=== PATIENT | female | born 1935 | race Caucasian/White ===

== ENCOUNTER 2016-05-29 11:50 | Inpatient (IN) | payer MEDICARE, OTHER ==
[~2016-05-29] VITALS: Ht 152.4 cm; Wt 82.6 kg
[2016-05-29] MEDS ORDERED: NITROGLYCERIN PACKET 1 GM PACKET ONE (12:23)
[2016-05-29] MEDS ORDERED: ASPIRIN 325 MG TABLET ONE (12:23)
[2016-05-29] MEDS ORDERED: NITROGLYCERIN PACKET 1 GM PACKET TD ONE (12:30)
[2016-05-29] MEDS ORDERED: ASPIRIN 325 MG TABLET PO ONE (12:30)
[2016-05-29 12:33] LABS: BASOPHILS # (AUTO) 0.1 /CMM (0.0-0.2); BASOPHILS % (AUTO) 0.7 % (0.0-2.0); DIFF TOTAL % 100 %; EOSINOPHILS % (AUTO) 0.2 % (0.0-6.0); HEMATOCRIT 30 % (33-45); LYMPHOCYTES # (AUTO) 0.9 /CMM (0.8-4.8); LYMPHOCYTES % (AUTO) 8.3 % (20.0-44.0); MEAN CORPUSCULAR HEMOGLOBIN 29 PG (26.0-33.0); MEAN CORPUSCULAR HGB CONC 33 g/dl (31.0-36.0); MEAN CORPUSCULAR VOLUME 86 fL (82-100); MONOCYTES # (AUTO) 0.5 /CMM (0.1-1.30); MONOCYTES % (AUTO) 4.6 % (2.0-12.0); NEUTROPHILS # (AUTO) 9.3 /CMM (1.8-8.9); NEUTROPHILS % (AUTO) 86.2 % (43.0-81.0); PLATELET COUNT (AUTO) 234 /CMM (150-450); RED BLOOD CELL COUNT(AUTO) 3.49 MIL/uL (4.0-5.2); WHITE BLOOD COUNT (AUTO) 10.8 K/uL (4.3-11.0)
[2016-05-29] MEDS ORDERED: FUROSEMIDE 40 MG/4 ML VIAL ONE (12:36)
[2016-05-29 12:42] LABS: ANION GAP 16 (5-14); CARBON DIOXIDE 24 mmol/L (21-32); CHLORIDE 95 mmol/L (98-107); CREATININE 1.2 mg/dL (0.6-1.3); GLUCOSE 131 mg/dL (74-106); POTASSIUM 4.3 mmol/L (3.5-5.1); SODIUM SERUM 130 mmol/L (136-145); UREA NITROGEN, BLOOD 21 mg/dL (7-18)
[2016-05-29 12:47] LABS: INR 1.17 (0.87-1.13); PROTHROMBIN TIME 12.7 SECS (9.5-12.7)
[2016-05-29 12:49] LABS: ALANINE AMINOTRANSFERASE 18 U/L (12-78); ALBUMIN 3.7 g/dL (3.4-5.0); ASPARTATE AMINOTRANSFERASE 19 U/L (15-37); BILIRUBIN,DIRECT 0.1 mg/dL (0.0-0.2); BILIRUBIN,TOTAL 0.4 mg/dL (0.2-1.0); INDIRECT BILIRUBIN 0.3 mg/dL (0.0-1.1); TOTAL PROTEIN, SERUM 7.4 g/dL (6.4-8.2); TROPONIN I < 0.017 ng/mL (0.00-0.056)
[2016-05-29] MEDS ORDERED: FUROSEMIDE 40 MG/4 ML VIAL IV ONE (13:00)
[2016-05-29] MEDS ORDERED: ASPI325T2 PO (14:16)
[2016-05-29] MEDS ORDERED: LOSA25TA13 PO (14:16)
[2016-05-29] MEDS ORDERED: FURO20TA4 PO (14:16)
[2016-05-29] MEDS ORDERED: SPIR25TA4 PO (14:16)
[2016-05-29 16:00] VITALS: BP 111/62
[2016-05-29] MEDS ORDERED: BUMETANIDE INJ 0.25 MG/ML VIAL IV ONE (17:00)
[2016-05-29] MEDS ORDERED: ENOXAPARIN SODIUM 40 MG/0.4 ML DISP.SYRIN SQ SCH (17:00)
[2016-05-29] MEDS ORDERED: ONDANSETRON HCL/PF 4 MG/2 ML VIAL IVP PRN (17:00)
[2016-05-29] MEDS ORDERED: IV NS 0.9% 250 ML IV ONE (17:23)
[2016-05-29] MEDS ORDERED: SECONDARY IV SET 1 EA INFUS.SET MC ONE (17:23)
[2016-05-29] MEDS ORDERED: IV SET PRIMARY PUMP SET 1 EA INFUS.SET MC ONE ×2 (17:23→17:44)
[2016-05-29] MEDS: CEFTRIAXONE 1 G in IV D5W 50 ML IV SCH (17:34)
[2016-05-29] MEDS: AZITHROMYCIN 500 MG in IV D5W 250 ML IV SCH (17:34)
[2016-05-29 20:00] VITALS: BP 98/64
[2016-05-29] MEDS: ENOXAPARIN SODIUM 30 MG/0.3 ML DISP.SYRIN SQ SCH (20:37)
[2016-05-29] MEDS: ACETAMINOPHEN 325 MG TABLET PO PRN (22:22)
[2016-05-30] VITALS (7 sets, daily range): BP systolic 102–110; BP diastolic 46–65
[2016-05-30] MEDS ORDERED: HYDROCODONE/APAP 5/325MG 1 EACH TABLET PO PRN
[2016-05-30] MEDS ORDERED: GUAIFENESIN/D-METHORPHAN HB 5 ML UDC ONE (00:26)
[2016-05-30] MEDS: GUAIFENESIN/D-METHORPHAN HB 5 ML UDC PO PRN ×4 (00:32→21:23)
[2016-05-30 07:35] LABS: BASOPHILS % (AUTO) 0.3 % (0.0-2.0); DIFF TOTAL % 100 %; HEMATOCRIT 28 % (33-45); HEMOGLOBIN 9.6 g/dL (11.5-14.8); LYMPHOCYTES # (AUTO) 1.2 /CMM (0.8-4.8); LYMPHOCYTES % (AUTO) 12.1 % (20.0-44.0); MEAN CORPUSCULAR HEMOGLOBIN 29 PG (26.0-33.0); MEAN CORPUSCULAR HGB CONC 34 g/dl (31.0-36.0); MEAN CORPUSCULAR VOLUME 86 fL (82-100); MONOCYTES # (AUTO) 0.7 /CMM (0.1-1.30); MONOCYTES % (AUTO) 6.8 % (2.0-12.0); NEUTROPHILS # (AUTO) 7.9 /CMM (1.8-8.9); NEUTROPHILS % (AUTO) 80.8 % (43.0-81.0); PLATELET COUNT (AUTO) 227 /CMM (150-450); RED BLOOD CELL COUNT(AUTO) 3.28 MIL/uL (4.0-5.2); WHITE BLOOD COUNT (AUTO) 9.8 K/uL (4.3-11.0)
[2016-05-30 07:51] LABS: THYROID STIMULATING HORMONE 4.722 uIU/mL (0.358-3.74)
[2016-05-30 07:52] LABS: ALBUMIN 3.4 g/dL (3.4-5.0); BILIRUBIN,TOTAL 0.5 mg/dL (0.2-1.0); CALCIUM, SERUM 8.7 mg/dL (8.5-10.1); CREATININE 1.3 mg/dL (0.6-1.3); PHOSPHORUS 3.3 mg/dL (2.5-4.9); POTASSIUM 4.2 mmol/L (3.5-5.1)
[2016-05-30] MEDS: ASPIRIN 325 MG TABLET PO SCH (09:43)
[2016-05-30] MEDS: LOSARTAN POTASSIUM 25 MG TABLET PO SCH (09:46)
[2016-05-30] MEDS: SPIRONOLACTONE 25 MG TABLET PO SCH (09:46)
[2016-05-30] MEDS: FUROSEMIDE 20 MG TABLET PO SCH (09:46)
[2016-05-30] MEDS: BUMETANIDE INJ 0.25 MG/ML VIAL IV SCH (09:50)
[2016-05-30] MEDS: CEFTRIAXONE 1 G in IV D5W 50 ML IV SCH (17:32)
[2016-05-30] MEDS: AZITHROMYCIN 500 MG in IV D5W 250 ML IV SCH (18:08)
[2016-05-30] MEDS: ACETAMINOPHEN 325 MG TABLET PO PRN (21:23)
[2016-05-30] MEDS: CARVEDILOL 3.125 MG TABLET PO SCH (21:23)
[2016-05-30] MEDS: ENOXAPARIN SODIUM 30 MG/0.3 ML DISP.SYRIN SQ SCH (21:24)
[2016-05-30] MEDS ORDERED: ATORVASTATIN 40 MG TABLET PO SCH (22:00)
[2016-05-31 04:00] VITALS: BP 98/53
[2016-05-31 07:00] VITALS: BP 105/54
[2016-05-31 08:00] VITALS: BP 102/53
[2016-05-31] MEDS: FUROSEMIDE 20 MG TABLET PO SCH (09:00)
[2016-05-31 09:29] LABS: BASOPHILS # (AUTO) 0.1 /CMM (0.0-0.2); BASOPHILS % (AUTO) 0.7 % (0.0-2.0); DIFF TOTAL % 100 %; EOSINOPHILS # (AUTO) 0.2 /CMM (0.0-0.7); EOSINOPHILS % (AUTO) 2.2 % (0.0-6.0); HEMATOCRIT 28 % (33-45); HEMOGLOBIN 9.4 g/dL (11.5-14.8); LYMPHOCYTES # (AUTO) 1.5 /CMM (0.8-4.8); LYMPHOCYTES % (AUTO) 16.8 % (20.0-44.0); MEAN CORPUSCULAR HEMOGLOBIN 29 PG (26.0-33.0); MEAN CORPUSCULAR HGB CONC 34 g/dl (31.0-36.0); MEAN CORPUSCULAR VOLUME 86 fL (82-100); MONOCYTES # (AUTO) 0.6 /CMM (0.1-1.30); MONOCYTES % (AUTO) 6.7 % (2.0-12.0); NEUTROPHILS # (AUTO) 6.5 /CMM (1.8-8.9); NEUTROPHILS % (AUTO) 73.6 % (43.0-81.0); PLATELET COUNT (AUTO) 238 /CMM (150-450); RED BLOOD CELL COUNT(AUTO) 3.25 MIL/uL (4.0-5.2); WHITE BLOOD COUNT (AUTO) 8.8 K/uL (4.3-11.0)
[2016-05-31] MEDS: ASPIRIN 325 MG TABLET PO SCH (09:48)
[2016-05-31] MEDS: SPIRONOLACTONE 25 MG TABLET PO SCH (09:48)
[2016-05-31] MEDS: CARVEDILOL 3.125 MG TABLET PO SCH (09:49)
[2016-05-31] MEDS: BUMETANIDE INJ 0.25 MG/ML VIAL IV SCH (09:52)
[2016-05-31 09:53] VITALS: BP 102/53
[2016-05-31] MEDS: LOSARTAN POTASSIUM 25 MG TABLET PO SCH (09:53)
[2016-05-31 10:04] LABS: CALCIUM, SERUM 8.8 mg/dL (8.5-10.1); CREATININE 1.4 mg/dL (0.6-1.3); PHOSPHORUS 3.6 mg/dL (2.5-4.9); POTASSIUM 3.9 mmol/L (3.5-5.1)
[2016-05-31] MEDS ORDERED: BUME1TAB4 PO (13:33)
[2016-05-31] MEDS ORDERED: CARV3.122 PO (13:33)
[2016-05-31] MEDS ORDERED: PNEUMOCOCCAL 23-VAL P-SAC VAC 0.5 ML VIAL SQ ONE (14:00)
[2016-05-31] MEDS ORDERED: CARVEDILOL 3.125 MG TABLET PO SCH (21:00)
== END 2016-05-31 14:45 | disposition home or self-care (01) | DRG 280 ==
LOC: ER 11:52 → TELE 14:58 → MED 05-31 11:49
PROVIDERS: ADMIT Nurse Practitioner Acute Care; ATTEND Nurse Practitioner Acute Care
DX: I21.4 Non-ST elevation (NSTEMI) myocardial infarction (principal); I50.23 Acute on chronic systolic (congestive) heart failure; J15.9 Unspecified bacterial pneumonia; E87.1 Hypo-osmolality and hyponatremia; I11.0 Hypertensive heart disease with heart failure; D63.8 Anemia in other chronic diseases classified elsewhere; I25.10 Atherosclerotic heart disease of native coronary artery without angina pectoris; I25.2 Old myocardial infarction; Z98.61 Coronary angioplasty status; Z87.01 Personal history of pneumonia (recurrent); I48.91 Unspecified atrial fibrillation; I25.5 Ischemic cardiomyopathy
CPT/HCPCS: 36415; 71010-TC; 80048-TC; 80053-TC; 80061-TC; 80076-TC; 83540-TC; 83735-TC; 84100-TC; 84443-TC; 84484-TC; 85025-TC; 85730-TC; 87081-TC; 90732; 93307-TC; 94799-TC; A4606; J0456; J0696; J1650; J1940; J3490; J7050; J7060; Z7610

== ENCOUNTER 2016-10-31 12:44 | Outpatient (CLI) | payer MEDICARE, OTHER ==
[~2016-10-31 12:44] MED LIST: ASPI325T2 PO; BUME1TAB4 PO; CARV3.122 PO; LOSA25TA13 PO; SPIR25TA4 PO
[2016-10-31 13:26] LABS: BASOPHILS # (AUTO) 0.1 /CMM (0.0-0.2); BASOPHILS % (AUTO) 0.6 % (0.0-2.0); EOSINOPHILS # (AUTO) 0.4 /CMM (0.0-0.7); EOSINOPHILS % (AUTO) 4.3 % (0.0-6.0); HEMATOCRIT 29 % (33-45); HEMOGLOBIN 9.8 g/dL (11.5-14.8); LYMPHOCYTES # (AUTO) 1.3 /CMM (0.8-4.8); LYMPHOCYTES % (AUTO) 15.3 % (20.0-44.0); MEAN CORPUSCULAR HEMOGLOBIN 30 PG (26.0-33.0); MEAN CORPUSCULAR HGB CONC 34 g/dl (31.0-36.0); MEAN CORPUSCULAR VOLUME 87 fL (82-100); MONOCYTES # (AUTO) 0.7 /CMM (0.1-1.30); MONOCYTES % (AUTO) 7.6 % (2.0-12.0); NEUTROPHILS # (AUTO) 6.2 /CMM (1.8-8.9); NEUTROPHILS % (AUTO) 72.2 % (43.0-81.0); PLATELET COUNT (AUTO) 228 /CMM (150-450); RDW COEFFICIENT OF VARIATION 14.5 (11.5-15.0); RED BLOOD CELL COUNT(AUTO) 3.29 MIL/uL (4.0-5.2); WHITE BLOOD COUNT (AUTO) 8.6 K/uL (4.3-11.0)
[2016-10-31 13:39] LABS: APPEARANCE,URINE CLEAR (CLEAR); BILIRUBIN,URINE NEGATIVE (NEGATIVE); BLOOD, URINE NEGATIVE Ery/uL (NEGATIVE); COLOR,URINE YELLOW (YELLOW); KETONES,URINE NEGATIVE (NEGATIVE); LEUKOCYTE ESTERASE ,URINE NEGATIVE (NEGATIVE); NITRITE, URINE NEGATIVE (NEGATIVE); PH,URINE 5.5 (5.0-8.0); PROTEIN,URINE NEGATIVE (NEGATIVE); UGLUCOSE NEGATIVE (NEGATIVE); UROBILINOGEN,URINE 0.2 EU/dL (0.2)
[2016-10-31 13:50] LABS: INR 1.17 (0.87-1.13); PROTHROMBIN TIME 12.7 SECS (9.5-12.7)
[2016-10-31 14:00] LABS: ALANINE AMINOTRANSFERASE 19 U/L (12-78); ALBUMIN 3.6 g/dL (3.4-5.0); ALKALINE PHOSPHATASE 73 U/L (46-116); ASPARTATE AMINOTRANSFERASE 15 U/L (15-37); BILIRUBIN,TOTAL 0.3 mg/dL (0.2-1.0); CALCIUM, SERUM 8.7 mg/dL (8.5-10.1); CARBON DIOXIDE 23 mmol/L (21-32); CHLORIDE 101 mmol/L (98-107); CREATININE 2.1 mg/dL (0.6-1.3); GLUCOSE 126 mg/dL (74-106); POTASSIUM 5.4 mmol/L (3.5-5.1); SODIUM SERUM 134 mmol/L (136-145); TOTAL PROTEIN, SERUM 6.9 g/dL (6.4-8.2); UREA NITROGEN, BLOOD 44 mg/dL (7-18)
[2016-10-31 14:08] LABS: CHOLESTEROL 126 mg/dL (<200); HDL CHOLESTEROL 37 mg/dL (40-60); TRIGLYCERIDES 110 mg/dL (30-150)
[2016-10-31 14:23] LABS: LDL 70 mg/dL (0-99)
== END 2016-10-31 23:59 | disposition home or self-care (01) ==
LOC: LAB 12:44
PROVIDERS: ATTEND Internal Medicine Interventional Cardiology
DX: Z01.818 Encounter for other preprocedural examination (principal); I25.10 Atherosclerotic heart disease of native coronary artery without angina pectoris
CPT/HCPCS: 36415; 80053-TC; 80061-TC; 81000-TC; 84439-TC; 84443-TC; 85025-TC; 85730-TC

== ENCOUNTER 2016-12-12 12:14 | Outpatient (CLI) | payer MEDICARE, OTHER ==
[2016-12-12 12:59] LABS: BASOPHILS % (AUTO) 0.6 % (0.0-2.0); EOSINOPHILS # (AUTO) 0.1 /CMM (0.0-0.7); EOSINOPHILS % (AUTO) 1.1 % (0.0-6.0); HEMATOCRIT 30 % (33-45); LYMPHOCYTES # (AUTO) 1.3 /CMM (0.8-4.8); LYMPHOCYTES % (AUTO) 17.2 % (20.0-44.0); MEAN CORPUSCULAR HEMOGLOBIN 29 PG (26.0-33.0); MEAN CORPUSCULAR HGB CONC 34 g/dl (31.0-36.0); MEAN CORPUSCULAR VOLUME 86 fL (82-100); MONOCYTES # (AUTO) 0.7 /CMM (0.1-1.30); MONOCYTES % (AUTO) 9.2 % (2.0-12.0); NEUTROPHILS # (AUTO) 5.6 /CMM (1.8-8.9); NEUTROPHILS % (AUTO) 71.9 % (43.0-81.0); PLATELET COUNT (AUTO) 243 /CMM (150-450); RDW COEFFICIENT OF VARIATION 14.9 (11.5-15.0); RED BLOOD CELL COUNT(AUTO) 3.46 MIL/uL (4.0-5.2); WHITE BLOOD COUNT (AUTO) 7.7 K/uL (4.3-11.0)
[2016-12-12 13:10] LABS: APPEARANCE,URINE CLEAR (CLEAR); BILIRUBIN,URINE NEGATIVE (NEGATIVE); BLOOD, URINE NEGATIVE Ery/uL (NEGATIVE); COLOR,URINE YELLOW (YELLOW); KETONES,URINE NEGATIVE (NEGATIVE); LEUKOCYTE ESTERASE ,URINE NEGATIVE (NEGATIVE); NITRITE, URINE NEGATIVE (NEGATIVE); PH,URINE 5.5 (5.0-8.0); PROTEIN,URINE NEGATIVE (NEGATIVE); UGLUCOSE NEGATIVE (NEGATIVE); UROBILINOGEN,URINE 0.2 EU/dL (0.2)
[2016-12-12 13:14] LABS: ALANINE AMINOTRANSFERASE 20 U/L (12-78); ALBUMIN 3.6 g/dL (3.4-5.0); ALKALINE PHOSPHATASE 73 U/L (46-116); ASPARTATE AMINOTRANSFERASE 18 U/L (15-37); BILIRUBIN,TOTAL 0.3 mg/dL (0.2-1.0); CALCIUM, SERUM 9.1 mg/dL (8.5-10.1); CARBON DIOXIDE 24 mmol/L (21-32); CHLORIDE 94 mmol/L (98-107); CREATININE 2.1 mg/dL (0.6-1.3); GLUCOSE 100 mg/dL (74-106); POTASSIUM 4.9 mmol/L (3.5-5.1); SODIUM SERUM 126 mmol/L (136-145); TOTAL PROTEIN, SERUM 6.9 g/dL (6.4-8.2); UREA NITROGEN, BLOOD 48 mg/dL (7-18)
[2016-12-12 13:19] LABS: INR 1.15 (0.87-1.13); PROTHROMBIN TIME 12.4 SECS (9.5-12.7)
== END 2016-12-12 23:59 | disposition home or self-care (01) ==
LOC: LAB 12:14
PROVIDERS: ATTEND Internal Medicine Interventional Cardiology
DX: I25.10 Atherosclerotic heart disease of native coronary artery without angina pectoris (principal)
CPT/HCPCS: 36415; 80053-TC; 81000-TC; 85025-TC; 85610-TC; 85730-TC

== ENCOUNTER 2016-12-14 08:48 | Outpatient (CLI) | payer MEDICARE, OTHER ==
[2016-12-14 09:35] LABS: CARBON DIOXIDE 25 mmol/L (21-32); CHLORIDE 91 mmol/L (98-107); CREATININE 1.5 mg/dL (0.6-1.3); GLUCOSE 102 mg/dL (74-106); POTASSIUM 4.7 mmol/L (3.5-5.1); SODIUM SERUM 122 mmol/L (136-145); UREA NITROGEN, BLOOD 38 mg/dL (7-18)
[2016-12-14] MEDS ORDERED: IV NS 0.9% 250 ML IV ONE (10:08)
[2016-12-14] MEDS ORDERED: IOHEXOL-350 100 ML VIAL IV ONE (10:08)
[2016-12-14] MEDS ORDERED: METOPROLOL TARTRATE INJ 5 MG/5 ML AMPUL ONE ×3 (10:54→11:26)
[2016-12-14] MEDS ORDERED: IV NS 0.9% 500 ML BAG IV ONE (11:00)
[2016-12-14] MEDS ORDERED: METOPROLOL TARTRATE INJ 5 MG/5 ML AMPUL IVP PRN (11:00)
== END 2016-12-14 23:59 | disposition home or self-care (01) ==
LOC: LAB 08:48
PROVIDERS: ATTEND Internal Medicine Interventional Cardiology
DX: I25.10 Atherosclerotic heart disease of native coronary artery without angina pectoris (principal); J98.11 Atelectasis; Z95.5 Presence of coronary angioplasty implant and graft
CPT/HCPCS: 36415; 75574; 80048; 93005; J3490 ×3; J7040; J7050; Q9967

== ENCOUNTER 2017-02-19 15:58 | Outpatient (CLI) | payer MEDICARE, OTHER ==
[2017-02-19 16:50] LABS: APPEARANCE,URINE CLEAR (CLEAR); BILIRUBIN,URINE NEGATIVE (NEGATIVE); BLOOD, URINE NEGATIVE Ery/uL (NEGATIVE); COLOR,URINE YELLOW (YELLOW); KETONES,URINE NEGATIVE (NEGATIVE); LEUKOCYTE ESTERASE ,URINE NEGATIVE (NEGATIVE); NITRITE, URINE NEGATIVE (NEGATIVE); PROTEIN,URINE NEGATIVE (NEGATIVE); UGLUCOSE NEGATIVE (NEGATIVE); UROBILINOGEN,URINE 0.2 EU/dL (0.2)
[2017-02-19 16:52] LABS: BASOPHILS # (AUTO) 0.1 /CMM (0.0-0.2); BASOPHILS % (AUTO) 0.7 % (0.0-2.0); EOSINOPHILS # (AUTO) 0.1 /CMM (0.0-0.7); HEMATOCRIT 30 % (33-45); HEMOGLOBIN 10.3 g/dL (11.5-14.8); LYMPHOCYTES # (AUTO) 1.6 /CMM (0.8-4.8); LYMPHOCYTES % (AUTO) 19.2 % (20.0-44.0); MEAN CORPUSCULAR HEMOGLOBIN 29 PG (26.0-33.0); MEAN CORPUSCULAR HGB CONC 34 g/dl (31.0-36.0); MEAN CORPUSCULAR VOLUME 86 fL (82-100); MONOCYTES # (AUTO) 0.8 /CMM (0.1-1.30); MONOCYTES % (AUTO) 9.3 % (2.0-12.0); NEUTROPHILS # (AUTO) 5.7 /CMM (1.8-8.9); NEUTROPHILS % (AUTO) 69.8 % (43.0-81.0); PLATELET COUNT (AUTO) 209 /CMM (150-450); RDW COEFFICIENT OF VARIATION 15.1 (11.5-15.0); RED BLOOD CELL COUNT(AUTO) 3.52 MIL/uL (4.0-5.2); WHITE BLOOD COUNT (AUTO) 8.2 K/uL (4.3-11.0)
[2017-02-19 17:03] LABS: INR 1.15 (0.87-1.13); PROTHROMBIN TIME 12.4 SECS (9.5-12.7)
[2017-02-19 17:11] LABS: CALCIUM, SERUM 9.1 mg/dL (8.5-10.1); CARBON DIOXIDE 21 mmol/L (21-32); CHLORIDE 99 mmol/L (98-107); CREATININE 2.4 mg/dL (0.6-1.3); GLUCOSE 100 mg/dL (74-106); POTASSIUM 5.9 mmol/L (3.5-5.1); SODIUM SERUM 131 mmol/L (136-145); UREA NITROGEN, BLOOD 59 mg/dL (7-18)
== END 2017-02-19 23:59 | disposition home or self-care (01) ==
LOC: LAB 15:58
PROVIDERS: ATTEND Internal Medicine Interventional Cardiology
DX: Z01.818 Encounter for other preprocedural examination (principal); R53.83 Other fatigue; R59.0 Localized enlarged lymph nodes
CPT/HCPCS: 36415; 80048-TC; 81000-TC; 85025-TC; 85730-TC

== ENCOUNTER 2017-02-25 11:15 | Outpatient (CLI) | payer MEDICARE, OTHER ==
[2017-02-25 11:42] LABS: CALCIUM, SERUM 8.9 mg/dL (8.5-10.1); CARBON DIOXIDE 23 mmol/L (21-32); CHLORIDE 98 mmol/L (98-107); CREATININE 2.5 mg/dL (0.6-1.3); GLUCOSE 109 mg/dL (74-106); SODIUM SERUM 127 mmol/L (136-145); UREA NITROGEN, BLOOD 62 mg/dL (7-18)
[2017-02-25 11:49] LABS: POTASSIUM 6.4 mmol/L (3.5-5.1)
== END 2017-02-25 23:59 | disposition home or self-care (01) ==
LOC: LAB 11:15
PROVIDERS: ATTEND Internal Medicine Interventional Cardiology
DX: I50.9 Heart failure, unspecified (principal)
CPT/HCPCS: 36415; 80048-TC

== ENCOUNTER 2018-11-12 10:53 | Inpatient (IN) | payer MEDICARE, OTHER ==
[~2018-11-12] VITALS: Ht 152.4 cm; Wt 76.2 kg
[~2018-11-12 10:53] MED LIST changes: +ASPI-992 PO; -ASPI325T2 PO; -BUME1TAB4 PO; +BUME1TAB9 PO; -LOSA25TA13 PO; +LOSA25TA27 PO; -SPIR25TA4 PO; +SPIR25TA6 PO
--- NOTE | 2018-11-12 11:05 | NUR ---
PRESSURE LIKE CHEST PAIN, SOB X 1 WEEK WORST TODAY. PATIENT A/OX3, BREATHING EVEN AND UNLABORED, NO SOB NOTED, IN ROOM AIR AT 98%. PATIENT ATTACHED TO THE RN HOMECARE.
--- NOTE | 2018-11-12 11:15 | NUR ---
PATIENT SEEN BY DR. MORLEY.
[2018-11-12 11:21] LABS: BASOPHILS % (AUTO) 0.6 % (0.0-2.0); EOSINOPHILS % (AUTO) 0.3 % (0.0-6.0); HEMATOCRIT 27 % (33-45); HEMOGLOBIN 9.1 g/dL (11.5-14.8); LYMPHOCYTES # (AUTO) 0.7 /CMM (0.8-4.8); LYMPHOCYTES % (AUTO) 8.9 % (20.0-44.0); MEAN CORPUSCULAR HGB CONC 34 g/dl (31.0-36.0); MEAN CORPUSCULAR VOLUME 82 fL (82-100); MONOCYTES # (AUTO) 0.4 /CMM (0.1-1.30); NEUTROPHILS # (AUTO) 6.3 /CMM (1.8-8.9); NEUTROPHILS % (AUTO) 84.2 % (43.0-81.0); PLATELET COUNT (AUTO) 198 /CMM (150-450); RED BLOOD CELL COUNT(AUTO) 3.33 MIL/uL (4.0-5.2); WHITE BLOOD COUNT (AUTO) 7.4 K/uL (4.3-11.0)
[2018-11-12 11:28] LABS: CARBON DIOXIDE 21 mmol/L (21-32); CHLORIDE 95 mmol/L (98-107); GLUCOSE 121 mg/dL (74-106); POTASSIUM 4.7 mmol/L (3.5-5.1); SODIUM SERUM 127 mmol/L (136-145); UREA NITROGEN, BLOOD 15 mg/dL (7-18)
[2018-11-12] MEDS ORDERED: ASPIRIN 325 MG TABLET ONE (11:30)
[2018-11-12] MEDS ORDERED: ALBUTEROL FS 2.5 MG/0.5 ML VIAL.NEB NEB ONE (11:30)
[2018-11-12] MEDS ORDERED: NITROGLYCERIN PACKET 1 GM PACKET TD ONE (11:30)
[2018-11-12] MEDS ORDERED: NITROGLYCERIN PACKET 1 GM PACKET ONE (11:30)
[2018-11-12] MEDS ORDERED: ASPIRIN 325 MG TABLET PO ONE (11:30)
[2018-11-12] MEDS ORDERED: ALBUTEROL FS 2.5 MG/0.5 ML VIAL.NEB ONE (11:32)
[2018-11-12 11:43] LABS: ALANINE AMINOTRANSFERASE 12 U/L (12-78); ALBUMIN 3.4 g/dL (3.4-5.0); ALKALINE PHOSPHATASE 56 U/L (46-116); ASPARTATE AMINOTRANSFERASE 12 U/L (15-37); B-TYPE NATRIURETIC PEPTIDE 12243 PG/ML (0-125); BILIRUBIN,DIRECT 0.2 mg/dL (0.0-0.2); BILIRUBIN,TOTAL 0.5 mg/dL (0.2-1.0); TOTAL PROTEIN, SERUM 6.8 g/dL (6.4-8.2)
[2018-11-12] MEDS ORDERED: FUROSEMIDE 40 MG/4 ML VIAL IV ONE (12:00)
[2018-11-12] MEDS ORDERED: CARV6.252 PO (12:01)
[2018-11-12] MEDS ORDERED: FURO20TA4 PO (12:01)
[2018-11-12] MEDS ORDERED: RANO500T3 PO (12:02)
[2018-11-12] MEDS ORDERED: FUROSEMIDE 40 MG/4 ML VIAL ONE (12:02)
--- NOTE | 2018-11-12 12:14 | NUR ---
MED SURGE BED 324-1, TURNED IN MOVE SHEET, AND CALLED EPIC
[2018-11-12] MEDS ORDERED: SPIRONOLACTONE 25 MG TABLET PO PRN (12:30)
--- NOTE | 2018-11-12 12:31 | NUR ---
REPORT GIVEN TO TINA ACEVEDO.
[2018-11-12] MEDS ORDERED: ONDANSETRON HCL/PF 4 MG/2 ML VIAL IVP PRN (13:30)
[2018-11-12] MEDS ORDERED: ACETAMINOPHEN 325 MG TABLET PO PRN (13:30)
[2018-11-12] MEDS ORDERED: ZOLPIDEM TARTRATE 5 MG TABLET PO PRN (13:30)
[2018-11-12] MEDS ORDERED: MAG HYDROX/AL HYDROX/SIMETH 30 ML UDC PO PRN (13:30)
[2018-11-12] MEDS ORDERED: Z GUARD REMEDY 2 OZ OINT TP PRN (13:30)
[2018-11-12] MEDS ORDERED: HYDROCODONE/APAP 5/325MG 1 EACH TABLET PO PRN (13:30)
[2018-11-12] MEDS ORDERED: MAGNESIUM HYDROXIDE 30 ML UDC PO PRN (13:30)
--- NOTE | 2018-11-12 13:38 | NUR ---
PATIENT A/OX4, ASSISTED TO RESTROOM, SOB ON EXERTION. APPLIED O2 INCREASED AT 4LPM VIA NC. PATIENT TRANSFERRED TO ROOM 324-1 IN STABLE CONDITION VIA ACLS PROTOCOL.
--- NOTE | 2018-11-12 13:40 | NUR ---
ROTARY ADJUSTER NOTES RECEIVED PT FROM DOMINICK SÁNCHEZ RN, VIA BED, PT IS AWAKE, ALERT AND ORIENTED, NO COMPLAINT OF CHEST PAIN AT THIS TIME, WITH COMPLAINT OF SOB, PLACED ON O2 AT 2LPM VIA N/C, ROOM SET UP ORIENTATION PROVIDED, VERBALIZED UNDERSTANDING, CALL LIGHT PLACED WITHIN REACH, NEEDS ATTENDED.
[2018-11-12 13:57] LABS: MAGNESIUM 1.6 mg/dL (1.8-2.4); PHOSPHORUS 3.6 mg/dL (2.5-4.9)
[2018-11-12 14:00] VITALS: BP 116/71
[2018-11-12] MEDS: ASPIRIN 325 MG TABLET PO SCH (14:18)
[2018-11-12] MEDS: FUROSEMIDE 40 MG/4 ML VIAL IV SCH ×3 (14:18→20:35)
[2018-11-12] MEDS: CARVEDILOL 6.25 MG TABLET PO SCH (14:18)
--- NOTE | 2018-11-12 14:44 | NUR ---
INITIAL ECHO RESULTS SHOWED EF20-25%. ADRIAN WILDER AND DR. NOVOA.
[2018-11-12 16:00] VITALS: BP 126/60
--- NOTE | 2018-11-12 18:30 | NUR ---
ALUMNI RELATIONS COORDINATOR NOTES PT IN BED, AWAKE, ALERT AND ORIENTED, NO COMPLAINT OF CHEST PAIN, NOT IN DISTRESS, ON CONTINUOUS O2 AT 2LPM VIA NASAL CANULA, O2 SAT AT 97%, WALKS TO THE BATHROOM WITH STEADY GAIT, TOLERATING CURRENT DIET, PM MEDS GIVEN ORDERED, ALL NEEDS ATTENDED.
[2018-11-12 20:00] VITALS: BP 123/65
[2018-11-12 20:19] VITALS: BP 123/65
--- NOTE | 2018-11-12 20:20 | NUR ---
RECEIVED: alert and orientated speech clear sitting oon the edge of the bed. resp even and unlabored. made aware she needs to call for assist to the bathroom for safety. daughter at the bed side
[2018-11-12] MEDS: Magnesium 1GM/D5W 100ML PREMIX 100 ML IV SCH ×2 (22:24→23:30)
[2018-11-13] VITALS: BP 118/68
[2018-11-13 04:00] VITALS: BP 120/65
--- NOTE | 2018-11-13 05:30 | NUR ---
ENDING NOTES: Mag level 1.6 aware and ordered replacement IV, given IVPB.. IV right ac Infiltrated and started new site left F/A. Ambulated to the bathroom with 1 nurse assist. Using the bathroom freq. d/t Lasix given. no sob this 12 hours O2 2 liters
--- NOTE | 2018-11-13 07:00 | NUR ---
RN NOTES PATIENT IN BED ALERT ORIENTED X 3. NO ACUTE DISTRESS NOTED. BREATHING UNLABORED. NO SOB NOTED. IV ACCESS PATENT AND INTACT, NO REDNESS OR SWELLING NOTED. SAFETY MEASURES IN PLACE. CALL LIGHT WITHIN REACH. WILL CONTINUE TO MONITOR ACCORDINGLY.
[2018-11-13 07:38] LABS: BASOPHILS # (AUTO) 0.1 /CMM (0.0-0.2); BASOPHILS % (AUTO) 1.2 % (0.0-2.0); HEMATOCRIT 27 % (33-45); HEMOGLOBIN 9.2 g/dL (11.5-14.8); LYMPHOCYTES # (AUTO) 0.9 /CMM (0.8-4.8); LYMPHOCYTES % (AUTO) 12.8 % (20.0-44.0); MEAN CORPUSCULAR HGB CONC 34 g/dl (31.0-36.0); MEAN CORPUSCULAR VOLUME 81 fL (82-100); MONOCYTES # (AUTO) 0.6 /CMM (0.1-1.30); MONOCYTES % (AUTO) 8.9 % (2.0-12.0); NEUTROPHILS # (AUTO) 5.5 /CMM (1.8-8.9); NEUTROPHILS % (AUTO) 76.1 % (43.0-81.0); PLATELET COUNT (AUTO) 208 /CMM (150-450); RED BLOOD CELL COUNT(AUTO) 3.33 MIL/uL (4.0-5.2); WHITE BLOOD COUNT (AUTO) 7.2 K/uL (4.3-11.0)
[2018-11-13 07:51] LABS: ALANINE AMINOTRANSFERASE 11 U/L (12-78); ALBUMIN 3.5 g/dL (3.4-5.0); ALKALINE PHOSPHATASE 53 U/L (46-116); ASPARTATE AMINOTRANSFERASE 13 U/L (15-37); BILIRUBIN,TOTAL 0.5 mg/dL (0.2-1.0); CALCIUM, SERUM 8.9 mg/dL (8.5-10.1); CARBON DIOXIDE 23 mmol/L (21-32); CHLORIDE 97 mmol/L (98-107); CREATININE 1.3 mg/dL (0.6-1.3); GLUCOSE 102 mg/dL (74-106); MAGNESIUM 2.1 mg/dL (1.8-2.4); PHOSPHORUS 3.8 mg/dL (2.5-4.9); POTASSIUM 3.9 mmol/L (3.5-5.1); SODIUM SERUM 133 mmol/L (136-145); TOTAL PROTEIN, SERUM 6.8 g/dL (6.4-8.2); UREA NITROGEN, BLOOD 20 mg/dL (7-18)
[2018-11-13 07:59] LABS: CHOLESTEROL 114 mg/dL (<200); HDL CHOLESTEROL 55 mg/dL (40-60); LDL 53 mg/dL (0-99); THYROID STIMULATING HORMONE 4.035 uIU/mL (0.358-3.74); TRIGLYCERIDES 56 mg/dL (30-150)
[2018-11-13] MEDS: ASPIRIN 325 MG TABLET PO SCH (09:04)
[2018-11-13] MEDS: CARVEDILOL 6.25 MG TABLET PO SCH (09:05)
[2018-11-13] MEDS: FUROSEMIDE 40 MG/4 ML VIAL IV SCH ×2 (09:34→16:05)
[2018-11-13] MEDS: POTASSIUM CHLORIDE 20 MEQ TAB.PRT.SR PO SCH ×3 (09:34→12:14)
[2018-11-13] MEDS ORDERED: CT SWABBABLE VALVE TRANS SET 1 EA INFUS.SET MC ONE (12:49)
[2018-11-13] MEDS ORDERED: IOHEXOL-350 100 ML VIAL IV ONE (12:49)
[2018-11-13] MEDS ORDERED: IV NS 0.9% 250 ML IV ONE (12:49)
[2018-11-13] MEDS ORDERED: NITROGLYCERIN 0.4 MG/TAB BOTTLE ONE (12:49)
--- NOTE | 2018-11-13 12:50 | NUR ---
EMBEDDED SOFTWARE PROGRAMMER NOTES PATIENT TRANSPORTED FOR CTA IN STABLE CONDITION.
[2018-11-13] MEDS ORDERED: METOPROLOL TARTRATE INJ 5 MG/5 ML AMPUL ONE ×3 (13:35→13:54)
[2018-11-13] MEDS ORDERED: IV NS 0.9% 500 ML IV ONE (14:00)
[2018-11-13] MEDS ORDERED: METOPROLOL TARTRATE INJ 5 MG/5 ML AMPUL IVP ONE (14:00)
--- NOTE | 2018-11-13 14:10 | NUR ---
BUSINESS ENTERPRISE OFFICER NOTES PATIENT CAME BACK FROM CTA WITH STABLE VITAL SIGNS, REPORT GIVEN BY RN MCKENNA
[2018-11-13 16:00] VITALS: BP 124/43
--- NOTE | 2018-11-13 19:00 | NUR ---
RN NOTES PATIENT IN BED ALERT ORIENTED X 3. NO ACUTE DISTRESS NOTED. BREATHING UNLABORED. NO SOB NOTED.DUE MEDICATIONS GIVEN, NO ASE NOTED. NEEDS ATTENDED AND ANTICIPATED. KEPT CLEAN DRY AND COMFORTABLE. SAFETY MEASURES IN PLACE. CALL LIGHT WITHIN REACH. ENDORSED TO NIGHT NURSE FOR CONTINUITY OF CARE.
--- NOTE | 2018-11-13 19:15 | NUR ---
ms support services rep notes pt seen in her room standing while washing her hands. Denies any pain or any discomfort. no SOB noted at this time. Pt aware of her test kym and aware that she will be NPO after 12 MN. heplock both are patent and intact. encourage her if she needs some help she can use her call light. kept her warm and comfortable at all times. will continue monitoring.
[2018-11-13 20:00] VITALS: BP 118/61
--- NOTE | 2018-11-14 00:03 | NUR ---
ms marisela notes pt sleeping comfortably in bed without any distress noted. NPO at this time for procedure kym. will continue monitoring. place call light at reach.
--- NOTE | 2018-11-14 03:08 | NUR ---
ms nursing agency manager notes remains asleep , no distress noted.
--- NOTE | 2018-11-14 07:12 | NUR ---
ms ophthalmologist retina specialist closing notes pt woke up and did her own morning routine ,slept well and stable evonne the night. NPO since 12 MN , aware of stress test today. consent signed. kept her warm and comfortable at all times. no signs of any distress noted. endorse to am nurse for continuity of care. place call light at reach.
--- NOTE | 2018-11-14 07:30 | NUR ---
MS RN OPENING NOTES RECEIVED PT SITTING UP AT THE EDGE OF THE BED. PT IS A/O X4, AFEBRILE. RESPIRATIONS ARE EVEN AND UNLABORED, NOT IN ANY ACUTE DISTRESS NOTED. PUPILS ARE REACTIVE TO LIGHT, BILATERAL HAND FOURTH HAND ARE STRONG AND EQUAL. DENIES ANY PAIN, NO C/O SOB, N/V. IV SITE TO LFA G22 AND RAC G20 INTACT, NO INFILTRATION NOTED. DRESSING KEPT CLEAN AND DRY. SAFETY MEASURES ARE IN PLACE. INSTRUCTED PT TO USE CALL LIGHT WHEN ASSISTANCE IS NEEDED, CALL LIGHT IS LEFT WITHIN REACH. WILL MONITOR THROUGHOUT SHIFT FOR CONTINUITY OF CARE.
[2018-11-14 08:00] VITALS: BP 109/46
[2018-11-14 08:01] LABS: CALCIUM, SERUM 8.9 mg/dL (8.5-10.1); CARBON DIOXIDE 25 mmol/L (21-32); CHLORIDE 99 mmol/L (98-107); CREATININE 1.4 mg/dL (0.6-1.3); GLUCOSE 95 mg/dL (74-106); PHOSPHORUS 4.2 mg/dL (2.5-4.9); POTASSIUM 4.4 mmol/L (3.5-5.1); SODIUM SERUM 134 mmol/L (136-145); UREA NITROGEN, BLOOD 27 mg/dL (7-18)
[2018-11-14 08:04] LABS: BASOPHILS # (AUTO) 0.1 /CMM (0.0-0.2); EOSINOPHILS % (AUTO) 1.6 % (0.0-6.0); HEMATOCRIT 26 % (33-45); HEMOGLOBIN 8.9 g/dL (11.5-14.8); LYMPHOCYTES % (AUTO) 15.2 % (20.0-44.0); MEAN CORPUSCULAR HGB CONC 34 g/dl (31.0-36.0); MEAN CORPUSCULAR VOLUME 82 fL (82-100); MONOCYTES # (AUTO) 0.6 /CMM (0.1-1.30); MONOCYTES % (AUTO) 9.2 % (2.0-12.0); NEUTROPHILS # (AUTO) 4.9 /CMM (1.8-8.9); PLATELET COUNT (AUTO) 207 /CMM (150-450); RED BLOOD CELL COUNT(AUTO) 3.21 MIL/uL (4.0-5.2); WHITE BLOOD COUNT (AUTO) 6.7 K/uL (4.3-11.0)
--- NOTE | 2018-11-14 08:27 | NUR ---
MS ACEVEDO NOTES-- PT P/U BY SHAINA FROM [place] VIA W/C IN STABLE CONDITION FOR CARDIAC STRESS TEST.
[2018-11-14] MEDS ORDERED: CARVEDILOL 6.25 MG TABLET PO SCH (09:00)
[2018-11-14] MEDS ORDERED: REGADENOSON 0.4 MG/5 ML DISP.SYRIN IVP ONE (09:00)
--- NOTE | 2018-11-14 09:15 | NUR ---
MS ACEVEDO NOTES-- PT CAME BACK FROM [facility] IN STABLE CONDITION VIA WC. PER SHAINA FROM [facility], PT CAN EAT BREAKFAST. ORDERED BREAKFAST TRAY.
[2018-11-14] MEDS: ASPIRIN 325 MG TABLET PO SCH (09:35)
--- NOTE | 2018-11-14 09:37 | NUR ---
MS RN NOTES-- CLEARED HIGHLIGHTED RED LEXISCAN IV IT WAS ADMINISTERED WHILE PT WAS IN [place] FOR CARDIAC STRESS TEST.
--- NOTE | 2018-11-14 10:15 | NUR ---
MS RN NOTES-- PT P/U BY RADIOLOGY FOR [place] CARDIAC STRESS TEST.
--- NOTE | 2018-11-14 11:00 | NUR ---
MS ACEVEDO NOTES-- PT CAME BACK FROM [place] IN STABLE CONDITION VIA W/C.
[2018-11-14 16:00] VITALS: BP 111/61
--- NOTE | 2018-11-14 16:10 | NUR ---
MS RN NOTES-- PT SEEN AND EXAMINED BY DR. KATZ.
[2018-11-14] MEDS ORDERED: CARV6.252 PO (16:23)
--- NOTE | 2018-11-14 17:40 | NUR ---
MS SENIOR CONSULTANT NOTE PT DISCHARGE TO HOME, P/U BY DAUGHTER. PT IS A/O X4, AFEBRILE. RESPIRATIONS ARE EVEN AND UNLABORED, NOT IN ANY ACUTE DISTRESS NOTED. PUPILS ARE REACTIVE, BILATERAL HAND POLISHER SAND ARE STRONG AND EQUAL. DENIES ANY PAIN, NO C/O SOB, N/V. ABDOMEN IS SOFT AND NONDISTENDED, BOWEL SOUNDS ARE PRESENT IN ALL 4 QUADRANTS UPON AUSCULTATION, DENIES ANY BLADDER DISCOMFORT. SKIN IS KEPT CLEAN AND DRY. NO SKIN ISSUES NOTED. IV ACCESS REMOVED, APPLIED PRESSURE AND TOLERATED WELL. ID BAND REMOVED. EXPLAINED DISCHARGE PAPERWORK TO PT WITH VERBAL AND WRITTEN UNDERSTANDING, PRESCRIPTIONS ARE INCLUDED. ALL BELONGINGS SENT WITH PT. ACCOMPANIED PT W./ 1 STAFF ASSIST TO LOBBY TO MEET WITH DTR. PT LEFT IN STABLE CONDITION.
[2018-11-15] MEDS ORDERED: RANEXA 500 MG PO SCH (09:00)
[2018-11-15] MEDS ORDERED: POTASSIUM CHLORIDE 20 MEQ TAB.PRT.SR PO SCH (12:00)
== END 2018-11-14 17:41 | disposition home or self-care (01) | DRG 280 ==
LOC: ER 10:53 → TELE 12:23 → MED 11-13 10:49
PROVIDERS: ADMIT Hospitalist; ATTEND Hospitalist
DX: I25.10 Atherosclerotic heart disease of native coronary artery without angina pectoris (principal); I21.A1 Myocardial infarction type 2; I50.23 Acute on chronic systolic (congestive) heart failure; E87.1 Hypo-osmolality and hyponatremia; N17.9 Acute kidney failure, unspecified; I11.0 Hypertensive heart disease with heart failure; E83.42 Hypomagnesemia; D63.8 Anemia in other chronic diseases classified elsewhere; I25.2 Old myocardial infarction; Z95.5 Presence of coronary angioplasty implant and graft; Z90.710 Acquired absence of both cervix and uterus; I44.7 Left bundle-branch block, unspecified; I25.5 Ischemic cardiomyopathy; I08.0 Rheumatic disorders of both mitral and aortic valves; R60.0 Localized edema
CPT/HCPCS: 36415; 71045-TC; 75574; 80048-TC; 80053-TC; 80061-TC; 80076-TC; 83735-TC; 83880; 84100-TC; 84443-TC; 84484-TC; 85025-TC; 85730-TC; 87081-TC; 93307-TC; 93970-TC; 97116-TC; 97530-TC; A9502; G0378; J1940; J2785; J3475; J3490; J7050; Q9967

== ENCOUNTER 2019-01-16 11:25 | Outpatient (CLI) | payer MEDICARE, OTHER ==
[~2019-01-16 11:25] MED LIST changes: -BUME1TAB9 PO; -CARV3.122 PO; +CARV6.252 PO; +FURO20TA4 PO; -LOSA25TA27 PO; +RANO500T3 PO
[2019-01-16 12:14] LABS: CALCIUM, SERUM 8.5 mg/dL (8.5-10.1); CARBON DIOXIDE 27 mmol/L (21-32); CHLORIDE 97 mmol/L (98-107); CREATININE 1.5 mg/dL (0.6-1.3); GLUCOSE 102 mg/dL (74-106); MAGNESIUM 1.5 mg/dL (1.8-2.4); POTASSIUM 4.5 mmol/L (3.5-5.1); SODIUM SERUM 134 mmol/L (136-145); UREA NITROGEN, BLOOD 21 mg/dL (7-18)
== END 2019-01-16 23:59 | disposition home or self-care (01) ==
LOC: LAB 11:25
PROVIDERS: ATTEND Internal Medicine Interventional Cardiology
DX: E86.0 Dehydration (principal)
CPT/HCPCS: 36415; 80048-TC; 83735-TC

== ENCOUNTER 2019-03-11 10:20 | Outpatient (CLI) | payer MEDICARE, OTHER ==
[2019-03-11 11:22] LABS: BASOPHILS # (AUTO) 0.1 /CMM (0.0-0.2); BASOPHILS % (AUTO) 0.9 % (0.0-2.0); EOSINOPHILS % (AUTO) 2.5 % (0.0-6.0); MEAN CORPUSCULAR HGB CONC 32 g/dl (31.0-36.0); MEAN CORPUSCULAR VOLUME 79 fL (82-100); MONOCYTES # (AUTO) 0.6 /CMM (0.1-1.30); MONOCYTES % (AUTO) 7.8 % (2.0-12.0); NEUTROPHILS # (AUTO) 5.3 /CMM (1.8-8.9); NEUTROPHILS % (AUTO) 74.8 % (43.0-81.0); PLATELET COUNT (AUTO) 169 /CMM (150-450); RED BLOOD CELL COUNT(AUTO) 2.49 MIL/uL (4.0-5.2); WHITE BLOOD COUNT (AUTO) 7.1 K/uL (4.3-11.0)
[2019-03-11 11:38] LABS: ALBUMIN 3.1 g/dL (3.4-5.0); BILIRUBIN,TOTAL 0.3 mg/dL (0.2-1.0); CALCIUM, SERUM 8.6 mg/dL (8.5-10.1); CREATININE 1.2 mg/dL (0.6-1.3); TOTAL PROTEIN, SERUM 6.6 g/dL (6.4-8.2)
[2019-03-11 11:43] LABS: HEMATOCRIT 20 % (33-45)
[2019-03-11 11:51] LABS: HEMOGLOBIN 6.3 g/dL (11.5-14.8)
[2019-03-11 12:09] LABS: EOSINOPHILS % (MANUAL) 2 % (0-4); LYMPHOCYTES % (MANUAL) 16 % (16-48); MONOCYTES % (MANUAL) 8 % (0-11.0); NEUTROPHILS % (MANUAL) 74 (42-76)
[2019-03-11] MEDS ORDERED: ROSU10TA29 PO (13:25)
[2019-03-11] MEDS ORDERED: CARV12.52 PO (13:25)
[2019-03-11] MEDS ORDERED: POTA-88 PO (13:25)
[2019-03-11] MEDS ORDERED: ESCI10TA PO (13:25)
== END 2019-03-11 23:59 | disposition home or self-care (01) ==
LOC: LAB 10:20
PROVIDERS: ATTEND Internal Medicine Interventional Cardiology
DX: J98.11 Atelectasis (principal); I11.0 Hypertensive heart disease with heart failure; I50.9 Heart failure, unspecified; M47.814 Spondylosis without myelopathy or radiculopathy, thoracic region; J44.9 Chronic obstructive pulmonary disease, unspecified; M19.042 Primary osteoarthritis, left hand; M19.041 Primary osteoarthritis, right hand; Z95.810 Presence of automatic (implantable) cardiac defibrillator
CPT/HCPCS: 36415; 71046; 80053-TC; 83735-TC; 85025-TC

== ENCOUNTER 2019-03-11 12:11 | Inpatient (IN) | payer MEDICARE, OTHER ==
[~2019-03-11] VITALS: Ht 152.4 cm; Wt 68.9 kg
[2019-03-11 12:57] LABS: BASOPHILS # (AUTO) 0.1 /CMM (0.0-0.2); BASOPHILS % (AUTO) 0.9 % (0.0-2.0); EOSINOPHILS % (AUTO) 1.9 % (0.0-6.0); MEAN CORPUSCULAR HGB CONC 33 g/dl (31.0-36.0); MEAN CORPUSCULAR VOLUME 80 fL (82-100); MONOCYTES # (AUTO) 0.6 /CMM (0.1-1.30); MONOCYTES % (AUTO) 7.9 % (2.0-12.0); NEUTROPHILS # (AUTO) 5.8 /CMM (1.8-8.9); NEUTROPHILS % (AUTO) 76.3 % (43.0-81.0); PLATELET COUNT (AUTO) 170 /CMM (150-450); RED BLOOD CELL COUNT(AUTO) 2.36 MIL/uL (4.0-5.2); WHITE BLOOD COUNT (AUTO) 7.6 K/uL (4.3-11.0)
[2019-03-11 13:02] LABS: HEMATOCRIT 19 % (33-45); HEMOGLOBIN 6.2 g/dL (11.5-14.8)
[2019-03-11 13:11] LABS: CALCIUM, SERUM 8.9 mg/dL (8.5-10.1); CARBON DIOXIDE 26 mmol/L (21-32); CHLORIDE 101 mmol/L (98-107); CREATININE 1.2 mg/dL (0.6-1.3); GLUCOSE 112 mg/dL (74-106); POTASSIUM 4.2 mmol/L (3.5-5.1); SODIUM SERUM 136 mmol/L (136-145); UREA NITROGEN, BLOOD 34 mg/dL (7-18)
[2019-03-11 13:23] LABS: ALANINE AMINOTRANSFERASE 8 U/L (12-78); ALBUMIN 3.1 g/dL (3.4-5.0); ALKALINE PHOSPHATASE 55 U/L (46-116); ASPARTATE AMINOTRANSFERASE 20 U/L (15-37); B-TYPE NATRIURETIC PEPTIDE 3452 PG/ML (0-125); BILIRUBIN,DIRECT 0.1 mg/dL (0.0-0.2); BILIRUBIN,TOTAL 0.3 mg/dL (0.2-1.0); TOTAL PROTEIN, SERUM 6.5 g/dL (6.4-8.2)
[2019-03-11] MEDS ORDERED: POTA-88 PO (13:25)
[2019-03-11] MEDS ORDERED: CARV12.52 PO (13:25)
[2019-03-11] MEDS ORDERED: ROSU10TA29 PO (13:25)
[2019-03-11] MEDS ORDERED: ESCI10TA PO (13:25)
[2019-03-11 13:46] LABS: APPEARANCE,URINE Clear (CLEAR); BILIRUBIN,URINE Negative (NEGATIVE); BLOOD, URINE Small Ery/uL (NEGATIVE); COLOR,URINE Yellow (YELLOW); KETONES,URINE Negative (NEGATIVE); LEUKOCYTE ESTERASE ,URINE Negative (NEGATIVE); NITRITE, URINE Negative (NEGATIVE); PH,URINE 5.5 (5.0-8.0); PROTEIN,URINE Negative (NEGATIVE); UGLUCOSE Negative (NEGATIVE); UROBILINOGEN,URINE 0.2 EU/dL (0.2)
[2019-03-11 13:47] LABS: BACTERIA,URINE Few /HPF (None Seen); SQUAMOUS EPITHELIAL CELL,UR Few /HPF (None Seen); WBC,URINE 0-2 /HPF (0-3)
[2019-03-11] MEDS ORDERED: FUROSEMIDE 20 MG/2 ML VIAL ONE (13:52)
[2019-03-11] MEDS ORDERED: FUROSEMIDE 20 MG/2 ML VIAL IV ONE (14:00)
[2019-03-11 16:20] VITALS: BP 111/51
[2019-03-11] MEDS ORDERED: Z GUARD REMEDY 2 OZ OINT TP PRN (17:00)
[2019-03-11] MEDS ORDERED: ONDANSETRON HCL/PF 4 MG/2 ML VIAL IVP PRN (17:00)
[2019-03-11] MEDS ORDERED: ZOLPIDEM TARTRATE 5 MG TABLET PO PRN (17:00)
[2019-03-11] MEDS ORDERED: MAGNESIUM HYDROXIDE 30 ML UDC PO PRN (17:00)
[2019-03-11] MEDS ORDERED: ACETAMINOPHEN 325 MG TABLET PO PRN (17:00)
[2019-03-11] MEDS ORDERED: HYDROCODONE/APAP 5/325MG 1 EACH TABLET PO PRN (17:00)
[2019-03-11] MEDS ORDERED: MAG HYDROX/AL HYDROX/SIMETH 30 ML UDC PO PRN (17:00)
[2019-03-11 17:01] LABS: IRON, SERUM 27 ug/dl (50-175); TOTAL IRON BINDING CAPACITY 331 ug/dl (250-450)
[2019-03-11 18:23] LABS: FERRITIN 46 ng/mL (8-388)
[2019-03-11 18:50] VITALS: BP 104/53
[2019-03-11 20:00] VITALS: BP 120/51
[2019-03-11] MEDS: ATORVASTATIN 10 MG TABLET PO SCH (21:48)
[2019-03-12] VITALS (12 sets, daily range): BP systolic 98–134; BP diastolic 39–72
[2019-03-12 06:21] LABS: BASOPHILS % (AUTO) 0.6 % (0.0-2.0); EOSINOPHILS % (AUTO) 1.7 % (0.0-6.0); HEMATOCRIT 21 % (33-45); HEMOGLOBIN 7.2 g/dL (11.5-14.8); LYMPHOCYTES # (AUTO) 1.1 /CMM (0.8-4.8); LYMPHOCYTES % (AUTO) 13.4 % (20.0-44.0); MEAN CORPUSCULAR HGB CONC 34 g/dl (31.0-36.0); MEAN CORPUSCULAR VOLUME 79 fL (82-100); MONOCYTES # (AUTO) 0.7 /CMM (0.1-1.30); MONOCYTES % (AUTO) 8.6 % (2.0-12.0); NEUTROPHILS # (AUTO) 6.4 /CMM (1.8-8.9); NEUTROPHILS % (AUTO) 75.7 % (43.0-81.0); PLATELET COUNT (AUTO) 160 /CMM (150-450); RED BLOOD CELL COUNT(AUTO) 2.68 MIL/uL (4.0-5.2); WHITE BLOOD COUNT (AUTO) 8.5 K/uL (4.3-11.0)
[2019-03-12 06:45] LABS: ALBUMIN 2.7 g/dL (3.4-5.0); BILIRUBIN,TOTAL 0.4 mg/dL (0.2-1.0); CALCIUM, SERUM 8.5 mg/dL (8.5-10.1); CREATININE 1.1 mg/dL (0.6-1.3); MAGNESIUM 1.9 mg/dL (1.8-2.4); PHOSPHORUS 3.9 mg/dL (2.5-4.9); TOTAL PROTEIN, SERUM 5.9 g/dL (6.4-8.2)
[2019-03-12 07:14] LABS: THYROID STIMULATING HORMONE 2.932 uIU/mL (0.358-3.74)
[2019-03-12] MEDS: FUROSEMIDE 80 MG TABLET PO SCH (09:31)
[2019-03-12] MEDS: PANTOPRAZOLE 40 MG VIAL IV SCH (09:31)
[2019-03-12] MEDS: ESCITALOPRAM OXALATE (10 MG) 10 MG TABLET PO SCH (09:31)
[2019-03-12] MEDS: CARVEDILOL 12.5 MG TABLET PO SCH (09:31)
[2019-03-12] MEDS: SOD FERRIC GLUC 125 MG in IV NS 0.9% 100 ML IV SCH (13:06)
[2019-03-12] MEDS ORDERED: MAGNESIUM CITRATE 296 ML BOTTLE PO ONE (14:30)
[2019-03-12] MEDS ORDERED: NA PHOS,M-B/NA PHOS,DI-BA 1 EA ENEMA RC PRN ×2 (14:30→14:36)
[2019-03-12] MEDS ORDERED: PEG 3350/NA SULF,BICARB,CL/KCL 4,000 ML BOTTLE PO ONE (14:30)
[2019-03-12 16:00] LABS: HEMATOCRIT 23 % (33-45); HEMOGLOBIN 7.6 g/dL (11.5-14.8); MEAN CORPUSCULAR HGB CONC 33 g/dl (31.0-36.0); MEAN CORPUSCULAR VOLUME 81 fL (82-100); PLATELET COUNT (AUTO) 179 /CMM (150-450); WHITE BLOOD COUNT (AUTO) 8.8 K/uL (4.3-11.0)
[2019-03-12 21:11] LABS: HEMATOCRIT 27 % (33-45); HEMOGLOBIN 8.9 g/dL (11.5-14.8); MEAN CORPUSCULAR HGB CONC 33 g/dl (31.0-36.0); MEAN CORPUSCULAR VOLUME 83 fL (82-100); PLATELET COUNT (AUTO) 174 /CMM (150-450); RED BLOOD CELL COUNT(AUTO) 3.25 MIL/uL (4.0-5.2); WHITE BLOOD COUNT (AUTO) 9.2 K/uL (4.3-11.0)
[2019-03-12] MEDS: ATORVASTATIN 10 MG TABLET PO SCH (21:27)
[2019-03-13 02:37] LABS: HEMATOCRIT 25 % (33-45); HEMOGLOBIN 8.3 g/dL (11.5-14.8); MEAN CORPUSCULAR HGB CONC 34 g/dl (31.0-36.0); MEAN CORPUSCULAR VOLUME 81 fL (82-100); PLATELET COUNT (AUTO) 167 /CMM (150-450); RED BLOOD CELL COUNT(AUTO) 3.06 MIL/uL (4.0-5.2)
[2019-03-13 06:43] LABS: BASOPHILS # (AUTO) 0.1 /CMM (0.0-0.2); BASOPHILS % (AUTO) 0.7 % (0.0-2.0); EOSINOPHILS % (AUTO) 2.5 % (0.0-6.0); HEMATOCRIT 25 % (33-45); HEMOGLOBIN 8.4 g/dL (11.5-14.8); LYMPHOCYTES % (AUTO) 12.9 % (20.0-44.0); MEAN CORPUSCULAR HGB CONC 34 g/dl (31.0-36.0); MEAN CORPUSCULAR VOLUME 81 fL (82-100); MONOCYTES # (AUTO) 0.8 /CMM (0.1-1.30); MONOCYTES % (AUTO) 9.7 % (2.0-12.0); NEUTROPHILS # (AUTO) 5.9 /CMM (1.8-8.9); NEUTROPHILS % (AUTO) 74.2 % (43.0-81.0); PLATELET COUNT (AUTO) 163 /CMM (150-450); WHITE BLOOD COUNT (AUTO) 7.9 K/uL (4.3-11.0)
[2019-03-13 06:52] LABS: ALBUMIN 2.6 g/dL (3.4-5.0); BILIRUBIN,TOTAL 0.4 mg/dL (0.2-1.0); CALCIUM, SERUM 8.4 mg/dL (8.5-10.1); CREATININE 1.1 mg/dL (0.6-1.3); MAGNESIUM 1.8 mg/dL (1.8-2.4); PHOSPHORUS 3.7 mg/dL (2.5-4.9); POTASSIUM 3.7 mmol/L (3.5-5.1); TOTAL PROTEIN, SERUM 5.8 g/dL (6.4-8.2)
[2019-03-13 07:30] VITALS: BP 133/51
[2019-03-13] MEDS: FUROSEMIDE 80 MG TABLET PO SCH (09:00)
[2019-03-13] MEDS: CARVEDILOL 12.5 MG TABLET PO SCH (09:00)
[2019-03-13] MEDS: ESCITALOPRAM OXALATE (10 MG) 10 MG TABLET PO SCH (09:00)
[2019-03-13] MEDS: PANTOPRAZOLE 40 MG VIAL IV SCH (09:08)
[2019-03-13 09:29] LABS: HEMATOCRIT 28 % (33-45); HEMOGLOBIN 9.3 g/dL (11.5-14.8); MEAN CORPUSCULAR HGB CONC 34 g/dl (31.0-36.0); MEAN CORPUSCULAR VOLUME 81 fL (82-100); PLATELET COUNT (AUTO) 192 /CMM (150-450); RED BLOOD CELL COUNT(AUTO) 3.45 MIL/uL (4.0-5.2)
[2019-03-13] MEDS: SOD FERRIC GLUC 125 MG in IV NS 0.9% 100 ML IV SCH (14:13)
[2019-03-13 15:22] LABS: HEMATOCRIT 27 % (33-45); MEAN CORPUSCULAR HGB CONC 33 g/dl (31.0-36.0); MEAN CORPUSCULAR VOLUME 81 fL (82-100); PLATELET COUNT (AUTO) 185 /CMM (150-450); RED BLOOD CELL COUNT(AUTO) 3.32 MIL/uL (4.0-5.2); WHITE BLOOD COUNT (AUTO) 8.6 K/uL (4.3-11.0)
[2019-03-13 16:11] VITALS: BP 123/55
[2019-03-13 20:00] VITALS: BP 139/83
[2019-03-13 20:47] LABS: HEMATOCRIT 28 % (33-45); HEMOGLOBIN 9.2 g/dL (11.5-14.8); MEAN CORPUSCULAR HGB CONC 33 g/dl (31.0-36.0); MEAN CORPUSCULAR VOLUME 81 fL (82-100); PLATELET COUNT (AUTO) 186 /CMM (150-450); RED BLOOD CELL COUNT(AUTO) 3.43 MIL/uL (4.0-5.2); WHITE BLOOD COUNT (AUTO) 9.1 K/uL (4.3-11.0)
[2019-03-13] MEDS: ATORVASTATIN 10 MG TABLET PO SCH (22:17)
== END 2019-03-14 07:15 | disposition left against medical advice (07) | DRG 378 ==
LOC: ER 12:11 → TELE 14:01 → MED 03-12 10:42
PROC: 30233N1 Transfusion of Nonautologous Red Blood Cells into Peripheral Vein, Percutaneous Approach (ICD-10-PCS; principal; 2019-03-11)
DX: K92.2 Gastrointestinal hemorrhage, unspecified (principal); D62 Acute posthemorrhagic anemia; I11.0 Hypertensive heart disease with heart failure; I50.9 Heart failure, unspecified; I25.10 Atherosclerotic heart disease of native coronary artery without angina pectoris; Z95.5 Presence of coronary angioplasty implant and graft; Z95.810 Presence of automatic (implantable) cardiac defibrillator; Z90.49 Acquired absence of other specified parts of digestive tract; D50.9 Iron deficiency anemia, unspecified; I25.2 Old myocardial infarction; Z90.710 Acquired absence of both cervix and uterus; Z79.82 Long term (current) use of aspirin
CPT/HCPCS: 36415; 71045-TC; 71046; 80048-TC; 80053-TC; 80061-TC; 80076-TC; 81000-TC; 82378; 82728-TC; 83540-TC; 83735-TC; 83880; 84100-TC; 84443-TC; 84484-TC; 85025-TC; 85027-TC; 85730-TC; 86850-TC; 86921-TC; 87081-TC; 97116-TC; 97530-TC; C9113; G0378; J1940; J2405; J2916; J7030; J7040; P9016-BL

== ENCOUNTER 2019-03-17 12:13 | Emergency (ER) | payer MEDICARE, OTHER ==
[~2019-03-17] VITALS: Ht 152.4 cm; Wt 68.9 kg
[~2019-03-17 12:13] MED LIST changes: -ASPI-992 PO; +CARV12.52 PO; -CARV6.252 PO; +ESCI10TA PO; +POTA-88 PO; -RANO500T3 PO; +ROSU10TA29 PO; -SPIR25TA6 PO
[2019-03-17 12:52] LABS: BASOPHILS # (AUTO) 0.1 /CMM (0.0-0.2); BASOPHILS % (AUTO) 0.8 % (0.0-2.0); EOSINOPHILS % (AUTO) 1.8 % (0.0-6.0); HEMATOCRIT 28 % (33-45); HEMOGLOBIN 9.2 g/dL (11.5-14.8); LYMPHOCYTES # (AUTO) 1.2 /CMM (0.8-4.8); LYMPHOCYTES % (AUTO) 16.7 % (20.0-44.0); MEAN CORPUSCULAR HGB CONC 34 g/dl (31.0-36.0); MEAN CORPUSCULAR VOLUME 82 fL (82-100); MONOCYTES # (AUTO) 0.8 /CMM (0.1-1.30); MONOCYTES % (AUTO) 11.2 % (2.0-12.0); NEUTROPHILS # (AUTO) 5.2 /CMM (1.8-8.9); NEUTROPHILS % (AUTO) 69.5 % (43.0-81.0); PLATELET COUNT (AUTO) 196 /CMM (150-450); RED BLOOD CELL COUNT(AUTO) 3.36 MIL/uL (4.0-5.2); WHITE BLOOD COUNT (AUTO) 7.5 K/uL (4.3-11.0)
[2019-03-17 12:58] LABS: CALCIUM, SERUM 8.4 mg/dL (8.5-10.1)
--- NOTE | 2019-03-17 13:06 | NUR ---
PATIENT CAME IN TO THE ER C/O RUE PAIN AND SWELLING X 5 DAYS S/P BLOOD TRANSFUSION. ON ROOM AIR, BREATHING EVENLY AND UNLABORED, CONNECTED TO THE MONITOR AND PULSE OX. KEPT COMFORTABLE, WILL CONTINUE TO MONITOR ACCORDINGLY.
[2019-03-17 14:01] VITALS: BP 135/81
--- NOTE | 2019-03-17 14:02 | NUR ---
Patient discharged to home in stable condition. Written and verbal after care instructions given. Patient verbalizes understanding of instruction.
== END 2019-03-17 14:02 | disposition home or self-care (01) ==
LOC: ER 12:13
DX: I80.8 Phlebitis and thrombophlebitis of other sites (principal); I10 Essential (primary) hypertension; Z90.710 Acquired absence of both cervix and uterus; Z95.5 Presence of coronary angioplasty implant and graft; Z60.2 Problems related to living alone; Z79.82 Long term (current) use of aspirin; Z79.899 Other long term (current) drug therapy
CPT/HCPCS: 36415; 80048-TC; 85025-TC; 93971-TC

== ENCOUNTER 2020-11-25 13:01 | Emergency (ER) | payer MEDICARE, OTHER ==
[~2020-11-25] VITALS: Ht 152.4 cm; Wt 79.4 kg
[2020-11-25] MEDS ORDERED: DULO30CA52 PO (13:18)
--- NOTE | 2020-11-25 13:30 | NUR ---
The patient presents to ER for "Been Having on/off swelling for couple months- now my Right Lower Leg is worse/red and has a blister called Dr Estrada office was told to come in". Right lower leg swelling +3 with redness and warm to touch. Fluid filled blister on right heel. C/O right lower leg pain 4/10. Respiration regular and unlabored. Will continue to monitor the patient.
--- NOTE | 2020-11-25 13:53 | NUR ---
PIV INSERTED IN LAC G#18, GOOD BLOOD RETURN NOTED. INTACT, PATENT AND FLUSHING WELL. PT TOLERATED WELL. WILL CONTINUE TO MONITOR
[2020-11-25 13:58] LABS: BASOPHILS # (AUTO) 0.1 K/uL (0.0-0.2); BASOPHILS % (AUTO) 1.2 % (0.0-2.0); EOSINOPHILS % (AUTO) 6.3 % (0.0-6.0); HEMATOCRIT 32 % (33-45); HEMOGLOBIN 10.4 g/dL (11.5-14.8); LYMPHOCYTES # (AUTO) 1.7 K/uL (0.8-4.8); LYMPHOCYTES % (AUTO) 22.6 % (20.0-44.0); MEAN CORPUSCULAR HGB CONC 33 g/dl (31.0-36.0); MEAN CORPUSCULAR VOLUME 85 fL (82-100); MONOCYTES # (AUTO) 0.7 K/uL (0.1-1.30); MONOCYTES % (AUTO) 9.3 % (2.0-12.0); NEUTROPHILS # (AUTO) 4.6 K/uL (1.8-8.9); NEUTROPHILS % (AUTO) 60.6 % (43.0-81.0); PLATELET COUNT (AUTO) 208 K/uL (150-450); RED BLOOD CELL COUNT(AUTO) 3.73 MIL/uL (4.0-5.2); WHITE BLOOD COUNT (AUTO) 7.6 K/uL (4.3-11.0)
[2020-11-25 14:06] LABS: CALCIUM, SERUM 8.6 mg/dL (8.5-10.1); CARBON DIOXIDE 30 mmol/L (21-32); CHLORIDE 98 mmol/L (98-107); CREATININE 1.2 mg/dL (0.6-1.3); GLUCOSE 133 mg/dL (74-106); POTASSIUM 3.8 mmol/L (3.5-5.1); SODIUM SERUM 134 mmol/L (136-145); UREA NITROGEN, BLOOD 23 mg/dL (7-18)
[2020-11-25] MEDS: VANCOMYCIN 1 GM in IV D5W 250 ML IV ONE (15:46)
[2020-11-25] MEDS ORDERED: CEPH500C2 PO (16:25)
[2020-11-25] MEDS ORDERED: SULF1TAB48 PO (16:26)
--- NOTE | 2020-11-25 17:30 | NUR ---
Patient discharged to home in stable condition. Written and verbal after care instructions given. Patient verbalizes understanding of instruction.
[2020-11-25 17:45] VITALS: BP 131/67
== END 2020-11-25 17:45 | disposition home or self-care (01) ==
LOC: ER 13:02
DX: L03.115 Cellulitis of right lower limb (principal); I10 Essential (primary) hypertension; I25.10 Atherosclerotic heart disease of native coronary artery without angina pectoris; F32.9 Major depressive disorder, single episode, unspecified; E78.5 Hyperlipidemia, unspecified; Z98.890 Other specified postprocedural states; Z60.2 Problems related to living alone; Z79.899 Other long term (current) drug therapy
CPT/HCPCS: 36415; 71045; 80048; 83880; 84484; 85025; 93005 ×2; 96365; 99285; J3370; J7060

== ENCOUNTER 2022-01-24 07:07 | Inpatient (IN) | payer MEDICARE, OTHER ==
[~2022-01-24] VITALS: Ht 152.4 cm; Wt 79.4 kg
[~2022-01-24 07:07] MED LIST changes: +CEPH500C2 PO; +DULO30CA52 PO; -ESCI10TA PO; -ROSU10TA29 PO; +SULF1TAB48 PO
--- NOTE | 2022-01-24 07:22 | NUR ---
BIB DAUGHTER FOR C/O WORSENING SOB AND COUGH FOR THE PAST COUPLE DAYS
--- NOTE | 2022-01-24 07:25 | NUR ---
VASQUEZ, DAUGHTER: [phone]
--- NOTE | 2022-01-24 07:32 | NUR ---
Dr. Beth at bedside.
[2022-01-24] MEDS ORDERED: FUROSEMIDE 40 MG/4 ML VIAL ONE (07:45)
[2022-01-24] MEDS ORDERED: ACETAMINOPHEN 325 MG TABLET ONE (07:45)
--- NOTE | 2022-01-24 07:45 | NUR ---
IV LINE ESTABLISHED ON LAC #20; PHLEB TECH AT BEDSIDE FOR BLOOD DRAW
--- NOTE | 2022-01-24 07:50 | NUR ---
Covid swab done, sent to lab.
[2022-01-24] MEDS ORDERED: ACETAMINOPHEN 325 MG TABLET PO ONE (08:00)
[2022-01-24] MEDS ORDERED: FUROSEMIDE 40 MG/4 ML VIAL IV ONE (08:00)
--- NOTE | 2022-01-24 08:00 | NUR ---
MOTTLER MACHINE FEEDER AT BEDSIDE FOR XRAY
--- NOTE | 2022-01-24 08:05 | NUR ---
MOVE SHEET SUBMITTED.
--- NOTE | 2022-01-24 08:06 | NUR ---
TECH AT BEDSIDE FOR EKG
[2022-01-24 08:14] LABS: BASOPHILS # (AUTO) 0.1 K/uL (0.0-0.2); BASOPHILS % (AUTO) 0.9 % (0.0-2.0); EOSINOPHILS % (AUTO) 0.1 % (0.0-6.0); HEMATOCRIT 32 % (33-45); HEMOGLOBIN 10.5 g/dL (11.5-14.8); LYMPHOCYTES # (AUTO) 0.6 K/uL (0.8-4.8); LYMPHOCYTES % (AUTO) 10.2 % (20.0-44.0); MEAN CORPUSCULAR HGB CONC 33 g/dl (31.0-36.0); MEAN CORPUSCULAR VOLUME 84 fL (82-100); MONOCYTES # (AUTO) 0.3 K/uL (0.1-1.30); MONOCYTES % (AUTO) 5.3 % (2.0-12.0); NEUTROPHILS # (AUTO) 4.9 K/uL (1.8-8.9); NEUTROPHILS % (AUTO) 83.5 % (43.0-81.0); PLATELET COUNT (AUTO) 157 K/uL (150-450); RED BLOOD CELL COUNT(AUTO) 3.78 MIL/uL (4.0-5.2); WHITE BLOOD COUNT (AUTO) 5.9 K/uL (4.3-11.0)
[2022-01-24 08:24] LABS: CALCIUM, SERUM 8.5 mg/dL (8.5-10.1); CARBON DIOXIDE 28 mmol/L (21-32); CHLORIDE 98 mmol/L (98-107); CREATININE 1.2 mg/dL (0.6-1.3); GLUCOSE 142 mg/dL (74-106); POTASSIUM 3.6 mmol/L (3.5-5.1); SODIUM SERUM 133 mmol/L (136-145); UREA NITROGEN, BLOOD 13 mg/dL (7-18)
[2022-01-24 08:38] LABS: ALANINE AMINOTRANSFERASE 17 U/L (12-78); ALBUMIN 3.4 g/dL (3.4-5.0); ALKALINE PHOSPHATASE 69 U/L (46-116); ASPARTATE AMINOTRANSFERASE 17 U/L (15-37); BILIRUBIN,DIRECT 0.1 mg/dL (0.0-0.2); BILIRUBIN,TOTAL 0.4 mg/dL (0.2-1.0); TOTAL PROTEIN, SERUM 6.8 g/dL (6.4-8.2)
--- NOTE | 2022-01-24 09:18 | NUR ---
CALLED [facility]. AWAITING CALL BACK.
--- NOTE | 2022-01-24 10:09 | NUR ---
COVID + PER LAB. DR MARIE AWARE.
--- NOTE | 2022-01-24 10:20 | NUR ---
GOT BED 102
--- NOTE | 2022-01-24 10:36 | NUR ---
REPORT GIVEN TO NURSE ANDERSON FOR [facility]
--- NOTE | 2022-01-24 10:50 | NUR ---
RN NOTE PATIENT WAS TRANSFERRED TO THE TELE UNIT FROM ER WITH PRIMARY DIAGNOSIS OF COVID 19 POSITIVE , M/B SOB ON EXERTION.PATIENT IS ALERT , ORIENTED TIMES 3 , AGITATED, ON ROOM AIR 02 SAT 96 % ,HAS SR WITH V PACING . PATIENT IN AMBULATES WITH ASSISTANCE TO THE BATHROOM , HAS IV ACCESS LAC 20 G BED IS AT LOWEST POSITION , CALL LIGHT WITHIN REACH, BED SIDE RAILS ARE UP . PATIENT WAS INSTRUCTED TO CALL NURSE IF SHE WANTS TO AMBULATE TO THE RESTROOM , PATIENT VERBALIZED UNDERSTANDING , WILL CONTINUE TO MONITOR.
[2022-01-24 11:00] LABS: D-DIMER 3.01 mg/L(FEU (0.17-0.50)
[2022-01-24] MEDS ORDERED: Z GUARD REMEDY 4 OZ OINT TP PRN (11:00)
[2022-01-24] MEDS ORDERED: MAG HYDROX/AL HYDROX/SIMETH 30 ML UDC PO PRN (11:00)
[2022-01-24] MEDS ORDERED: ONDANSETRON HCL/PF 4 MG/2 ML VIAL IVP PRN (11:00)
--- NOTE | 2022-01-24 11:17 | NUR ---
MRSA SWAB COLLECTED AND SENT TO LAB
[2022-01-24] MEDS: ENOXAPARIN SODIUM 30 MG/0.3 ML DISP.SYRIN SQ SCH (12:22)
[2022-01-24] MEDS: FUROSEMIDE 40 MG/4 ML VIAL IV SCH ×3 (12:24→23:24)
[2022-01-24 13:31] VITALS: BP 109/62
[2022-01-24] MEDS: ACETAMINOPHEN 325 MG TABLET PO PRN (16:34)
[2022-01-24 17:31] VITALS: BP 143/68
--- NOTE | 2022-01-24 18:42 | NUR ---
RN CLOSING NOTE PATIENT IS ALERT , ORIENTED TIMES 3 , PUT ON O2 , 2 L VIA N/C DUE TO O2 SAT DROPPED TO 93 %, PATIENT IS ON TELE MONITOR SR WITH V PACING , AMBULATED TO THE RESTROOM WITH NURSE ASSISTANCE 4 TIMES OVER MY SHIFT , NO BM, CURRENTLY ON CARDIAC DIET , C/O NAUSEA ZOFRAN WAS ADMINISTERED PER MD ORDER , S/P REPORTED NO NAUSEA .ALL MEDICATIONS WERE ADMINISTERED ALL NEEDS ARE MET .PATIENT IS SITTING AT THE CHAIR WITH O2 SAT 98 % ON O2 2L VIA N/C , CALL LIGHT WITHIN REACH , SN REINFORCED IMPORTANCE OF CALLING TO THE NURSE WHEN SHE WANTS TO TRANSFER TO THE BED OR TO THE BATHROOM , TO CALL FOR ASSISTANCE .PATIENT VERBALIZED UNDERSTANDING , WILL ENDORSE ENROLLMENT MANAGEMENT MANAGER .
--- NOTE | 2022-01-24 19:30 | NUR ---
RN OPENING NOTE RECEIVED PT AWAKE, SITTING ON CHAIR. A/O X 4, ABLE TO MAKE NEEDS KNOWN. CURRENTLY ON O2 THERAPY VIA NC 2L, TOLERATING WELL. NO S/SX OF ACUTE DISTRESS NOTED AT THIS TIME. NO PAIN, NO SOB. IV ACCESS NOTED ON LAC #20G, SL. PT IS STABLE AND AMBULATORY. ALL SAFETY MEASURES IN PLACE: BED LOCKED IN LOW POSITION. BED ALARM ON. SR UP X 2. CALL LIGHT WITHIN REACH. WILL CONTINUE TO MONITOR.
[2022-01-24 20:00] VITALS: BP 113/55
[2022-01-24] MEDS: GUAIFENESIN/D-METHORPHAN HB 5 ML UDC PO PRN (21:31)
--- NOTE | 2022-01-24 21:31 | NUR ---
RN NOTE PT REQUESTED FOR COUGH MEDICATION. ADMINISTERED GUAIFENESIN ORDERED. WILL CONTINUE TO MONITOR.
[2022-01-24] MEDS ORDERED: MAGNESIUM HYDROXIDE 30 ML UDC PO PRN (22:00)
[2022-01-25] VITALS: BP 103/74
[2022-01-25] MEDS: ACETAMINOPHEN 325 MG TABLET PO PRN ×3 (01:55→23:12)
[2022-01-25 04:00] VITALS: BP 80/63
[2022-01-25] MEDS: FUROSEMIDE 40 MG/4 ML VIAL IV SCH ×4 (05:44→23:07)
--- NOTE | 2022-01-25 05:57 | NUR ---
RN NOTE PT COMPLAINS OF PAIN IN THE BLADDER AREA. BROKE MAN AIDE ORDERED UA. PT IS AMBULATORY AND GOES TO BATHROOM ON HER OWN. PT HAS NOT HAD THE CHANCE TO GET A URINE SAMPLE YET. WILL ENDORSE TO AM SHIFT NURSE. SUPPLIES READY IN PT'S BEDSIDE.
[2022-01-25 05:59] LABS: BASOPHILS % (AUTO) 0.3 % (0.0-2.0); HEMATOCRIT 30 % (33-45); LYMPHOCYTES # (AUTO) 0.9 K/uL (0.8-4.8); LYMPHOCYTES % (AUTO) 15.2 % (20.0-44.0); MEAN CORPUSCULAR HGB CONC 33 g/dl (31.0-36.0); MEAN CORPUSCULAR VOLUME 84 fL (82-100); MONOCYTES % (AUTO) 17.1 % (2.0-12.0); NEUTROPHILS # (AUTO) 3.8 K/uL (1.8-8.9); NEUTROPHILS % (AUTO) 67.4 % (43.0-81.0); PLATELET COUNT (AUTO) 137 K/uL (150-450); RED BLOOD CELL COUNT(AUTO) 3.59 MIL/uL (4.0-5.2); WHITE BLOOD COUNT (AUTO) 5.6 K/uL (4.3-11.0)
--- NOTE | 2022-01-25 06:09 | NUR ---
RN CLOSING NOTE ALL DUE MEDS GIVEN. NEEDS ATTENDED TO. PT REMAINED STABLE THROUGHOUT THE NIGHT. ALL SAFETY PRECAUTIONS IN PLACE. WILL ENDORSE TO AM SHIFT NURSE FOR [facility].
[2022-01-25 06:16] LABS: CALCIUM, SERUM 7.9 mg/dL (8.5-10.1); CARBON DIOXIDE 29 mmol/L (21-32); CHLORIDE 97 mmol/L (98-107); CREATININE 1.5 mg/dL (0.6-1.3); GLUCOSE 103 mg/dL (74-106); MAGNESIUM 1.9 mg/dL (1.8-2.4); PHOSPHORUS 4.5 mg/dL (2.5-4.9); POTASSIUM 3.3 mmol/L (3.5-5.1); SODIUM SERUM 133 mmol/L (136-145); UREA NITROGEN, BLOOD 21 mg/dL (7-18)
[2022-01-25 07:09] LABS: CHOLESTEROL 104 mg/dL (<200); HDL CHOLESTEROL 43 mg/dL (40-60); LDL 51 mg/dL (0-99); THYROID STIMULATING HORMONE 1.867 uIU/mL (0.358-3.74); TRIGLYCERIDES 76 mg/dL (30-150)
--- NOTE | 2022-01-25 07:30 | NUR ---
telephone order clerk opening note patient is alert and oriented x4 patient has iv on left upper arm 22 guage. iv patent and flushing well. patient is on 2 l nasal canula tolerating at 97%. patient is on tele monitor currently sinus rhytm.patient is ambulatory. all safety measures in place. call light with reach. bed locked at lowest position. bedside table next to patient.
[2022-01-25 08:00] VITALS: BP 118/68
[2022-01-25] MEDS: PANTOPRAZOLE 40 MG TABLET.DR PO SCH (08:25)
[2022-01-25] MEDS: ENOXAPARIN SODIUM 30 MG/0.3 ML DISP.SYRIN SQ SCH (08:25)
[2022-01-25] MEDS: CARVEDILOL 12.5 MG TABLET PO SCH ×2 (08:26→17:18)
[2022-01-25] MEDS: POTASSIUM CHLORIDE 20 MEQ TAB.PRT.SR PO SCH ×3 (08:26→13:18)
--- NOTE | 2022-01-25 08:30 | NUR ---
patient refusing lovenox shot in the stomach.notfied dr. nathaly beck. will followup
[2022-01-25 08:41] LABS: BASOPHILS % (MANUAL) 0 % (0.0-2.0); EOSINOPHILS % (MANUAL) 0 % (0-4); LYMPHOCYTES % (MANUAL) 16 % (16-48); MONOCYTES % (MANUAL) 15 % (0-11.0); NEUTROPHILS % (MANUAL) 69 (42-76)
--- NOTE | 2022-01-25 08:57 | NUR ---
per dr. nathaly beck ok to give lovenox in the arm per patient request
[2022-01-25 11:08] LABS: BILIRUBIN,URINE NEGATIVE (NEGATIVE); COLOR,URINE YELLOW (YELLOW); LEUKOCYTE ESTERASE ,URINE MODERATE (NEGATIVE); NITRITE, URINE POSITIVE (NEGATIVE); PROTEIN,URINE NEGATIVE (NEGATIVE); UGLUCOSE NEGATIVE (NEGATIVE); UROBILINOGEN,URINE 0.2 EU/dL (0.2)
[2022-01-25 11:12] LABS: BACTERIA,URINE Few /HPF (None Seen); SQUAMOUS EPITHELIAL CELL,UR Few /HPF (None Seen)
[2022-01-25] MEDS: DEXAMETHASONE SOD PHOSPHATE 10 MG/ML VIAL IV SCH (11:33)
[2022-01-25 11:46] LABS: CREATININE, URINE 41.3 MG/DL (30.0-125.0)
[2022-01-25 12:00] VITALS: BP 110/46
[2022-01-25 16:00] VITALS: BP 111/56
--- NOTE | 2022-01-25 18:56 | NUR ---
radiotelegraph operator closing note patient is alert and oriented x3. patient is able to make needs known. patient has iv on left arm.iv patent and flushing well. patient is on tele monitor at patient is ambulatory. patient is on nasal cannua tolerating at 97%.patient is sitting on chair. all safety measures in place.bed locked at lowest position. call light with reach.bedside table next to patient.
--- NOTE | 2022-01-25 19:41 | NUR ---
telecommunications consultant opening note; received patient in bed aaox3, able to make needs known.on 2l 02 via nc uvaldo well satting 98%,no sign sob/distress noted, iv access on left arm.patent and intact flushing well.all safety measures in place.bed locked at lowest position. call light with reach.will continue to monitor.
[2022-01-25 20:00] VITALS: BP 99/42
[2022-01-25] MEDS: GUAIFENESIN/D-METHORPHAN HB 5 ML UDC PO PRN (23:12)
[2022-01-26] VITALS: BP 116/87
[2022-01-26 04:00] VITALS: BP 118/68
[2022-01-26] MEDS: FUROSEMIDE 40 MG/4 ML VIAL IV SCH (05:39)
[2022-01-26 05:55] LABS: BASOPHILS % (AUTO) 0.1 % (0.0-2.0); HEMATOCRIT 30 % (33-45); HEMOGLOBIN 10.2 g/dL (11.5-14.8); LYMPHOCYTES # (AUTO) 0.7 K/uL (0.8-4.8); LYMPHOCYTES % (AUTO) 23.3 % (20.0-44.0); MEAN CORPUSCULAR HGB CONC 34 g/dl (31.0-36.0); MEAN CORPUSCULAR VOLUME 82 fL (82-100); MONOCYTES # (AUTO) 0.6 K/uL (0.1-1.30); MONOCYTES % (AUTO) 19.3 % (2.0-12.0); NEUTROPHILS # (AUTO) 1.7 K/uL (1.8-8.9); NEUTROPHILS % (AUTO) 57.3 % (43.0-81.0); PLATELET COUNT (AUTO) 144 K/uL (150-450); RED BLOOD CELL COUNT(AUTO) 3.69 MIL/uL (4.0-5.2)
[2022-01-26 06:26] LABS: ALANINE AMINOTRANSFERASE 20 U/L (12-78); ALBUMIN 3.2 g/dL (3.4-5.0); ALKALINE PHOSPHATASE 60 U/L (46-116); ASPARTATE AMINOTRANSFERASE 32 U/L (15-37); BILIRUBIN,TOTAL 0.3 mg/dL (0.2-1.0); CALCIUM, SERUM 8.3 mg/dL (8.5-10.1); CARBON DIOXIDE 28 mmol/L (21-32); CHLORIDE 94 mmol/L (98-107); CREATININE 1.8 mg/dL (0.6-1.3); GLUCOSE 119 mg/dL (74-106); MAGNESIUM 1.9 mg/dL (1.8-2.4); PHOSPHORUS 5.1 mg/dL (2.5-4.9); POTASSIUM 4.3 mmol/L (3.5-5.1); SODIUM SERUM 129 mmol/L (136-145); TOTAL PROTEIN, SERUM 6.4 g/dL (6.4-8.2); UREA NITROGEN, BLOOD 33 mg/dL (7-18)
--- NOTE | 2022-01-26 06:41 | NUR ---
supervisor telephone answering service closing note; patient in bed sleeping but easy to aroused,aox3, able to make needs known.on 2l 02 via nc uvaldo well satting 97%,no sign sob/distress noted,due meds given s order,all needs attended,tele monitor inplaced sr. iv access on left arm.patent and intact flushing well.all safety measures in place.bed locked at lowest position. call light with reach.will endorsed to next shift.
--- NOTE | 2022-01-26 07:30 | NUR ---
telecommunicator opening note patient is alert and oriented x4.patient is on room air tolerating at above 92%. patient is ambulatory and skin intact.patient has iv on left arm.iv patent and flushing well. all safety measures in place.call light with reach. bed locked at lowest position.
[2022-01-26 08:00] VITALS: BP 119/53
[2022-01-26] MEDS: PANTOPRAZOLE 40 MG TABLET.DR PO SCH (08:41)
[2022-01-26] MEDS: CARVEDILOL 12.5 MG TABLET PO SCH ×2 (08:41→17:41)
[2022-01-26] MEDS: DEXAMETHASONE SOD PHOSPHATE 10 MG/ML VIAL IV SCH (08:41)
[2022-01-26] MEDS: ENOXAPARIN SODIUM 30 MG/0.3 ML DISP.SYRIN SQ SCH (08:44)
[2022-01-26] MEDS: SPIRONOLACTONE 25 MG TABLET PO SCH (09:30)
[2022-01-26] MEDS ORDERED: SPIR25TA6 PO (09:31)
[2022-01-26 13:34] LABS: BASOPHILS % (MANUAL) 0 % (0.0-2.0); EOSINOPHILS % (MANUAL) 0 % (0-4); LYMPHOCYTES % (MANUAL) 25 % (16-48); MONOCYTES % (MANUAL) 16 % (0-11.0); NEUTROPHILS % (MANUAL) 59 (42-76)
[2022-01-26] MEDS ORDERED: FUROSEMIDE 40 MG/4 ML VIAL IV ONE (14:00)
[2022-01-26 16:00] VITALS: BP 111/43
--- NOTE | 2022-01-26 17:00 | NUR ---
patient went to ct scan of chest. waiting for results
--- NOTE | 2022-01-26 18:49 | NUR ---
telephone operator chief closing note patient is alert and oriented x4. all needs met. patient is ambulatory and skin intact. patient has iv access on left arm. iv patent and flushing well. patient is on room air tolerating at above 95%.
--- NOTE | 2022-01-26 19:30 | NUR ---
MS RN OPENING RECEIVED PATIENT IN ROOM ISOLATED FOR COVID 19. SITTING ON CHAIR. NO S/S OF APPARENT DISTRESS IN ROOM AIR. DENIES ANY PAIN NOR DISCOMFORT AT THIS TIME. L.AC #20G IN SALINE LOCK, FLUSHING WELL. RE-ORIENTED AND ENCOURAGED WITH THE USE OF CALL LIGHT. WILL CONTINUE WITH PLAN OF CARE FOR PATIENT.
[2022-01-26 20:00] VITALS: BP 119/57
[2022-01-27 05:00] VITALS: BP 129/58
--- NOTE | 2022-01-27 07:30 | NUR ---
tele/medsurg rn opening note patient is alert and oriented x4.patient is on room air. patient is ambulatory and skin is intact. patient has left ac gauge.iv intact and flushing well. patient sits on bedside chair. all safety measures in place. call light with reach.bed locked at lowest position.side rails up x2.
[2022-01-27 08:00] VITALS: BP 109/42
[2022-01-27 08:07] LABS: CALCIUM, SERUM 8.4 mg/dL (8.5-10.1); CARBON DIOXIDE 26 mmol/L (21-32); CHLORIDE 96 mmol/L (98-107); CREATININE 1.5 mg/dL (0.6-1.3); GLUCOSE 124 mg/dL (74-106); POTASSIUM 4.3 mmol/L (3.5-5.1); SODIUM SERUM 131 mmol/L (136-145); UREA NITROGEN, BLOOD 41 mg/dL (7-18)
[2022-01-27] MEDS: PANTOPRAZOLE 40 MG TABLET.DR PO SCH (08:07)
[2022-01-27] MEDS: DEXAMETHASONE SOD PHOSPHATE 10 MG/ML VIAL IV SCH (08:07)
[2022-01-27 08:08] VITALS: BP 109/42
[2022-01-27] MEDS: SPIRONOLACTONE 25 MG TABLET PO SCH (08:08)
[2022-01-27] MEDS: CARVEDILOL 12.5 MG TABLET PO SCH (08:08)
[2022-01-27] MEDS: ENOXAPARIN SODIUM 30 MG/0.3 ML DISP.SYRIN SQ SCH (08:10)
--- NOTE | 2022-01-27 13:55 | NUR ---
tele/medical lab assistant note patient being discharged. provided discharge paperwork, completed patient belongings list,educated patient on new medications and current medications that doctor prescribed. patient verbalized understanding
--- NOTE | 2022-01-27 14:30 | NUR ---
tele/addiction medicine physician note patient being discharged. provided discharge paperwork, completed patient belongings list,educated patient on new medications and current medications that doctor prescribed. removed iv. patient verbalized understanding.
[2022-01-30] MEDS ORDERED: FUROSEMIDE 40 MG/4 ML VIAL ONE (13:19)
[2022-01-30] MEDS ORDERED: FUROSEMIDE 20 MG/2 ML VIAL ONE (13:19)
== END 2022-01-27 15:29 | disposition home or self-care (01) | DRG 291 ==
LOC: ER 07:09 → TELE1 10:23 → MEDSG1 01-26 08:42
DX: I11.0 Hypertensive heart disease with heart failure (principal); I50.23 Acute on chronic systolic (congestive) heart failure; U07.1 COVID-19; N17.0 Acute kidney failure with tubular necrosis; E87.1 Hypo-osmolality and hyponatremia; E66.2 Morbid (severe) obesity with alveolar hypoventilation; J84.9 Interstitial pulmonary disease, unspecified; Z95.5 Presence of coronary angioplasty implant and graft; I25.5 Ischemic cardiomyopathy; I25.10 Atherosclerotic heart disease of native coronary artery without angina pectoris; D63.8 Anemia in other chronic diseases classified elsewhere; E11.9 Type 2 diabetes mellitus without complications; E87.6 Hypokalemia; Z87.01 Personal history of pneumonia (recurrent); Z90.710 Acquired absence of both cervix and uterus; Z68.34 Body mass index [BMI] 34.0-34.9, adult; Z90.49 Acquired absence of other specified parts of digestive tract; Z95.810 Presence of automatic (implantable) cardiac defibrillator; J47.9 Bronchiectasis, uncomplicated; I25.2 Old myocardial infarction
CPT/HCPCS: 36415; 71045-TC; 71250-TC; 76770-TC; 80048-TC; 80053-TC; 80061-TC; 80076-TC; 81001; 82550-TC; 82570-TC; 83605-TC; 83615-TC; 83735-TC; 83880; 84100-TC; 84300-TC; 84443-TC; 84484-TC; 85025-TC; 85378-TC; 85385-TC; 85730-TC; 86140-TC; 87040-TC; 87081-TC; 87086-TC; 87186-TC; 97116-TC; 97530-TC; C9803; G0378; J1100; J1650; J1940; J2405

== ENCOUNTER 2022-01-30 11:23 | Inpatient (IN) | payer MEDICARE ==
[~2022-01-30] VITALS: Ht 162.6 cm; Wt 80.7 kg
[~2022-01-30 11:23] MED LIST changes: -CEPH500C2 PO; -DULO30CA52 PO; -POTA-88 PO; +SPIR25TA6 PO; -SULF1TAB48 PO
--- NOTE | 2022-01-30 11:32 | NUR ---
BIB DAUGHTER C/O SHORTNESS OF BREATH . PT WAS RECENTLY ADMITTED 01/22, TESTED POSITIVE FOR COVID, AND D/C ON SATURDAY. STATED SHE FELT OKAY SATURDAY BUT SATURDAY HER SHORTNESS OF BREATH BECAME PROGRESSIVELY WORSE. ATTACHED TO THE MONITOR, SATTING AT 96% ROOM AIR. CHANGED INTO HOSPITAL GOWN. WARM BLANKET PROVIDED FOR COMFORT. Kitty SALCIDO AT BEDSIDE. AWAITING MD ORDERS.
--- NOTE | 2022-01-30 11:40 | NUR ---
The patient is bibdaughter, c/o sob 96% on room air, +covid saturday recently d/c for covid. The patient is alert and oriented x4. In room air and oxygen saturation level os at 96%. Respiration regular with SOB. Denies pain. The patient is attached to the monitor. Will continue to monitor the patient.
--- NOTE | 2022-01-30 11:41 | NUR ---
COVID TEST COLLECTED AND SENT
--- NOTE | 2022-01-30 11:44 | NUR ---
GREGG Mendoza AC 20G. LABS COLLECTED AND SENT.
--- NOTE | 2022-01-30 11:47 | NUR ---
covid antigen swab done and sent to the lab
--- NOTE | 2022-01-30 12:06 | NUR ---
TECH AT BEDSIDE FOR EKG
[2022-01-30 12:10] LABS: BASOPHILS % (AUTO) 0.5 % (0.0-2.0); EOSINOPHILS % (AUTO) 0.5 % (0.0-6.0); HEMATOCRIT 33 % (33-45); HEMOGLOBIN 10.7 g/dL (11.5-14.8); LYMPHOCYTES # (AUTO) 1.6 K/uL (0.8-4.8); LYMPHOCYTES % (AUTO) 28.9 % (20.0-44.0); MEAN CORPUSCULAR HGB CONC 33 g/dl (31.0-36.0); MEAN CORPUSCULAR VOLUME 82 fL (82-100); MONOCYTES # (AUTO) 0.7 K/uL (0.1-1.30); MONOCYTES % (AUTO) 12.1 % (2.0-12.0); NEUTROPHILS # (AUTO) 3.2 K/uL (1.8-8.9); PLATELET COUNT (AUTO) 152 K/uL (150-450); RED BLOOD CELL COUNT(AUTO) 3.98 MIL/uL (4.0-5.2); WHITE BLOOD COUNT (AUTO) 5.5 K/uL (4.3-11.0)
--- NOTE | 2022-01-30 12:13 | NUR ---
MOVE SHEET SUBMITTED.
[2022-01-30 12:22] LABS: CALCIUM, SERUM 8.7 mg/dL (8.5-10.1); CARBON DIOXIDE 27 mmol/L (21-32); CHLORIDE 97 mmol/L (98-107); CREATININE 1.3 mg/dL (0.6-1.3); GLUCOSE 116 mg/dL (74-106); POTASSIUM 3.7 mmol/L (3.5-5.1); SODIUM SERUM 133 mmol/L (136-145); UREA NITROGEN, BLOOD 31 mg/dL (7-18)
[2022-01-30 12:35] LABS: ALANINE AMINOTRANSFERASE 32 U/L (12-78); ALBUMIN 3.4 g/dL (3.4-5.0); ALKALINE PHOSPHATASE 52 U/L (46-116); ASPARTATE AMINOTRANSFERASE 37 U/L (15-37); BILIRUBIN,DIRECT 0.1 mg/dL (0.0-0.2); BILIRUBIN,TOTAL 0.5 mg/dL (0.2-1.0); TOTAL PROTEIN, SERUM 6.8 g/dL (6.4-8.2)
--- NOTE | 2022-01-30 12:54 | NUR ---
DAUGHTER KAREN CALLED, LEFT CONTACT # [phone]
[2022-01-30] MEDS ORDERED: ALBUTEROL FS 2.5 MG/3 ML VIAL.NEB NEB ONE (13:00)
[2022-01-30] MEDS ORDERED: IPRATROPIUM NEB FS 0.5 MG/2.5 ML AMPUL.NEB NEB ONE (13:00)
[2022-01-30] MEDS ORDERED: FUROSEMIDE 40 MG/4 ML VIAL IV ONE (13:00)
[2022-01-30] MEDS ORDERED: FUROSEMIDE 40 MG/4 ML VIAL ONE (13:04)
[2022-01-30] MEDS ORDERED: FUROSEMIDE 20 MG/2 ML VIAL ONE (13:04)
--- NOTE | 2022-01-30 13:06 | NUR ---
BED GIVEN 109
[2022-01-30] MEDS ORDERED: ALBUTEROL FS 2.5 MG/3 ML VIAL.NEB ONE (13:09)
[2022-01-30] MEDS ORDERED: IPRATROPIUM NEB FS 0.5 MG/2.5 ML AMPUL.NEB ONE (13:09)
--- NOTE | 2022-01-30 13:22 | NUR ---
TIP MENDER AT BEDSIDE FOR US
--- NOTE | 2022-01-30 13:23 | NUR ---
KRISTINA BREAUX, FOR REPORT; WILL CALL BACK
--- NOTE | 2022-01-30 13:46 | NUR ---
KRISTINA BREAUX, ON BREAK; REPORT GIVEN TO KRISTINA ANDERSON.
[2022-01-30] MEDS ORDERED: MORPHINE SULFATE INJ 2 MG/ML DISP.SYRIN IV PRN (14:00)
[2022-01-30] MEDS ORDERED: MAG HYDROX/AL HYDROX/SIMETH 30 ML UDC PO PRN (14:00)
[2022-01-30] MEDS ORDERED: TEMAZEPAM 15 MG CAPSULE PO PRN (14:00)
[2022-01-30] MEDS ORDERED: ONDANSETRON HCL/PF 4 MG/2 ML VIAL IVP PRN (14:00)
[2022-01-30] MEDS ORDERED: Z GUARD REMEDY 4 OZ OINT TP PRN (14:00)
[2022-01-30] MEDS ORDERED: ACETAMINOPHEN 325 MG TABLET PO PRN (14:00)
[2022-01-30] MEDS ORDERED: ENOXAPARIN SODIUM 30 MG/0.3 ML DISP.SYRIN SQ SCH (14:00)
[2022-01-30] MEDS ORDERED: MAGNESIUM HYDROXIDE 30 ML UDC PO PRN (14:00)
[2022-01-30] MEDS ORDERED: HYDROCODONE/APAP 5/325MG TABLET PO PRN (14:00)
--- NOTE | 2022-01-30 14:10 | NUR ---
PT TRANSFERRED TO 109 VIA [facility] ACLS PROTOCOL. WARM HANDOFF GIVEN TO KRISTINA BREAUX.
[2022-01-30 14:45] VITALS: BP 153/61
[2022-01-30] MEDS ORDERED: ALBUTEROL SULFATE 8 GM HFA.AER.AD NEB PRN (15:30)
[2022-01-30] MEDS: FUROSEMIDE 20 MG TABLET PO SCH ×2 (15:57→17:00)
[2022-01-30] MEDS: CARVEDILOL 12.5 MG TABLET PO SCH (15:57)
[2022-01-30 16:00] VITALS: BP 107/60
--- NOTE | 2022-01-30 18:47 | NUR ---
RN CLOSING NOTE PATIENT SITTING IN BED A/OX4 ON ROOM AIR. NO CURRENT SINGS OF DISTRESS OR COMPLAINTS OF SOB. LAC 20G SL. PATIENT IS AMBULATORY. SAFETY MEASURES IN BED WILL ENDORSE TO NIGHT NURSE.
--- NOTE | 2022-01-30 19:30 | NUR ---
CASH MANAGER OPENING NOTE RECEIVED PATIENT AWAKE IN CHAIR A/OX4, PATIENT ON RA, TOLERATING WELL NO S/S OF ACUTE DISTRESS. IV ACCESS LAC #20G S/L. PATIENT HAS PACEMAKER. TELE MONITOR READING VENTRICULAR PACING HR 72. PATIENT IS AMBULATORY. PATIENT ABLE TO MAKE NEEDS KNOWN. CALL LIGHT WITHIN REACH. SAFETY MEASURES INDORSED PER HOSPITAL POLLICY. WILL CONTINUE TO MONITOR.
[2022-01-30 20:00] VITALS: BP 110/46
[2022-01-31] VITALS: BP 131/80
[2022-01-31 04:00] VITALS: BP 135/54
[2022-01-31 06:30] LABS: BASOPHILS % (AUTO) 0.3 % (0.0-2.0); EOSINOPHILS % (AUTO) 0.8 % (0.0-6.0); HEMATOCRIT 31 % (33-45); HEMOGLOBIN 10.3 g/dL (11.5-14.8); LYMPHOCYTES # (AUTO) 1.5 K/uL (0.8-4.8); LYMPHOCYTES % (AUTO) 36.2 % (20.0-44.0); MEAN CORPUSCULAR HGB CONC 33 g/dl (31.0-36.0); MEAN CORPUSCULAR VOLUME 83 fL (82-100); MONOCYTES # (AUTO) 0.5 K/uL (0.1-1.30); MONOCYTES % (AUTO) 12.6 % (2.0-12.0); NEUTROPHILS # (AUTO) 2.1 K/uL (1.8-8.9); NEUTROPHILS % (AUTO) 50.1 % (43.0-81.0); PLATELET COUNT (AUTO) 139 K/uL (150-450); WHITE BLOOD COUNT (AUTO) 4.2 K/uL (4.3-11.0)
--- NOTE | 2022-01-31 06:41 | NUR ---
CHRISTIAN MINISTRIES PROFESSOR CLOSING NOTE PATIENT ASLEEP IN BED EASILY AROUSABLE, A/OX4, PATIENT ON RA, TOLERATING WELL NO S/S OF ACUTE DISTRESS. IV ACCESS LAC #20G S/L. TELE MONITOR READING SR 85 V PACING.PATIENT IS AMBULATORY. PATIENT ABLE TO MAKE NEEDS KNOWN. ALL DUE MEDS GIVEN. CALL LIGHT WITHIN REACH. SAFETY MEASURES INDORSED PER HOSPITAL POLLICY. WILL ENDORSE TO MORNING NURSE.
[2022-01-31 07:22] LABS: CALCIUM, SERUM 8.6 mg/dL (8.5-10.1); CREATININE 1.3 mg/dL (0.6-1.3); MAGNESIUM 1.8 mg/dL (1.8-2.4); PHOSPHORUS 3.8 mg/dL (2.5-4.9); POTASSIUM 3.6 mmol/L (3.5-5.1)
--- NOTE | 2022-01-31 07:32 | NUR ---
RN OPENING NOTE PATIENT IS O BED, AWAKE, ALERT AND ORIENTED X 4. ON ROOM AIR SATTING AT 96%. SINUS RHYTHM WITH V PACING ON PAINT ROLLER ASSEMBLER. WITH LEFT ANTECUBITAL IV LOCK INTACT AND PATENT. DENIES CHEST PAIN, BREATHING UNLABORED AND NOT IN ANY FORM OF DISTRESS. BED IS LOCKED IN LOWEST POSITION, 3 SIDE RAILS UP, CALL LIGHT WITHIN REACH. WILL CONTINUE TO MONITOR THROUGHOUT SHIFT.
[2022-01-31] MEDS: PANTOPRAZOLE 40 MG TABLET.DR PO SCH (07:36)
[2022-01-31 08:00] VITALS: BP 132/64
--- NOTE | 2022-01-31 08:00 | NUR ---
RN NOTE PATIENT VERBALIZED NAUSEA. ZOFRAN GIVEN. WILL CONTINUE TO MONITOR.
[2022-01-31] MEDS ORDERED: FUROSEMIDE 40 MG/4 ML VIAL IV SCH (09:00)
[2022-01-31] MEDS: IPRATROPIUM NEB FS 0.5 MG/2.5 ML AMPUL.NEB NEB SCH ×3 (09:52→19:30)
[2022-01-31] MEDS: ALBUTEROL HALF STRENGTH 1.25 MG/3 ML VIAL.NEB NEB SCH ×3 (09:52→19:30)
--- NOTE | 2022-01-31 09:52 | NUR ---
RESP TX DEFERRED. PT COVID POSITIVE. NO S/S OF SOB NOTED ATT Addendum: 01/31/22 at 0953 by JAZMIN HARRELL RT Amended: Links added.
[2022-01-31] MEDS: FUROSEMIDE 20 MG TABLET PO SCH ×2 (10:14→17:53)
[2022-01-31] MEDS: CARVEDILOL 12.5 MG TABLET PO SCH (10:14)
[2022-01-31] MEDS: ENOXAPARIN SODIUM 80 MG/0.8 ML DISP.SYRIN SQ SCH (10:15)
[2022-01-31 12:00] VITALS: BP 115/55
[2022-01-31 16:00] VITALS: BP 122/43
--- NOTE | 2022-01-31 19:04 | NUR ---
RN CLOSING NOTE PATIENT REMAINED STABLE THROUGHOUT SHIFT. DENIES PAIN, BREATHING UNLABORED AND NOT IN ANY FORM OF DISTRESS. TOLERATES OXYGEN VIA NASAL CANNULA AT 2L/MIN. LEFT ANTECUBITAL IV INTACT AND PATENT. ALL HOSPITAL SAFETY PRECAUTIONS IN PLACE. WILL ENDORSE TO HAT FINISHING MATERIALS PREPARER NURSE.
--- NOTE | 2022-01-31 19:30 | NUR ---
RN OPENING NOTE RECEIVED PATIENT SITTING ON CHAIR, ALERT AND ORIENTED X 4. ABLE TO MAKE NEEDS KNOWN. CURRENTLY ON ROOM AIR, SATING AT 98%. TELE MONITOR SHOWS SINUS RHYTHM WITH V PACING. NO SOB, DENIES CHEST PAIN, BREATHING UNLABORED AND NOT IN ANY FORM OF DISTRESS UPON INITIAL ASSESSMENT. IV ACCESS NOTED ON LEFT AC, SL, INTACT AND PATENT. ALL SAFETY MEASURES IN PLACE: BED LOCKED IN LOWEST POSITION, 3 SIDE RAILS UP, CALL LIGHT WITHIN REACH. WILL CONTINUE TO MONITOR THROUGHOUT SHIFT.
--- NOTE | 2022-01-31 19:40 | NUR ---
TX NOT GIVEN DUE TO POSITIVE COVID. RN JILLIAN NOTIFIED. NO RESPIRATORY DISTRESS NOTED AT THIS TIME
[2022-01-31 20:00] VITALS: BP 125/66
--- NOTE | 2022-01-31 21:10 | NUR ---
RN NOTE PT ASKED FOR TYLENOL. GAVE ORDERED. WILL CONTINUE TO MONITOR PT CLOSELY.
[2022-02-01] VITALS: BP 124/66
[2022-02-01] MEDS: IPRATROPIUM NEB FS 0.5 MG/2.5 ML AMPUL.NEB NEB SCH ×3 (01:26→13:25)
[2022-02-01] MEDS: ALBUTEROL HALF STRENGTH 1.25 MG/3 ML VIAL.NEB NEB SCH ×3 (01:26→13:25)
[2022-02-01 04:00] VITALS: BP 130/67
--- NOTE | 2022-02-01 06:35 | NUR ---
RN CLOSING NOTE PT REMAINED STABLE THROUGHOUT THE NIGHT. TELE MONITOR SHOWS V-PACING 100% WITH HR IN THE 80-90S. PT DENIES PAIN. NO SIGNS OF RESPI DISTRESS. NEEDS ATTENDED TO. TURNED AND REPOSITIONED. WILL ENDORSE TO AM SHIFT NURSE FOR [facility].
--- NOTE | 2022-02-01 07:20 | NUR ---
QUALITY CONTROL TECH OPENING NOTE: RECEIVED PATIENT AWAKE IN CHAIR A/OX4, PATIENT ON RA, TOLERATING WELL NO S/S OF ACUTE DISTRESS. IV ACCESS LAC #20G S/L. PATIENT HAS PACEMAKER. TELE MONITOR READING VENTRICULAR PACING HR 72. PATIENT IS AMBULATORY. PATIENT ABLE TO MAKE NEEDS KNOWN. CALL LIGHT WITHIN REACH. SAFETY MEASURES IN PLACE. WILL CONTINUE TO MONITOR.
[2022-02-01 07:23] LABS: CALCIUM, SERUM 8.5 mg/dL (8.5-10.1); CARBON DIOXIDE 29 mmol/L (21-32); CHLORIDE 98 mmol/L (98-107); CREATININE 1.4 mg/dL (0.6-1.3); GLUCOSE 111 mg/dL (74-106); POTASSIUM 3.7 mmol/L (3.5-5.1); SODIUM SERUM 134 mmol/L (136-145); UREA NITROGEN, BLOOD 32 mg/dL (7-18)
--- NOTE | 2022-02-01 07:46 | NUR ---
RN NOTES: SEEN BY DR NOVOA WITH ORDER TO DO COVID TEST IF NEGATIVE SHE CAN GO HOME
[2022-02-01 08:00] VITALS: BP 105/48
[2022-02-01] MEDS: PANTOPRAZOLE 40 MG TABLET.DR PO SCH (08:22)
[2022-02-01] MEDS: ENOXAPARIN SODIUM 80 MG/0.8 ML DISP.SYRIN SQ SCH (08:25)
[2022-02-01 10:43] VITALS: BP 122/47
[2022-02-01] MEDS: CARVEDILOL 12.5 MG TABLET PO SCH (10:43)
[2022-02-01] MEDS: FUROSEMIDE 20 MG TABLET PO SCH (10:44)
--- NOTE | 2022-02-01 10:46 | NUR ---
RN notes: BP at 8am 105/47 rechecked now 122/[address] Byrne if ok to give coreg and lasix with this bp he sais YES, MEDICATION GIVEN. also DR Byrne made aware her covid test still positive he said to keep her at the hospital. pt made aware of her current positive covid test result
[2022-02-01] MEDS ORDERED: ALBU8.5H8 INH (14:53)
--- NOTE | 2022-02-01 15:49 | NUR ---
brine room laborer notes: pt up on wheelchair, alert and oriented x 4, not in any distress,denied any pain or discomfort, discharge instruction given, discharge medication list given given verbalized understanding..IV line removed skin intact, assisted pt to her daughter private car in stable condition, instruct to follow up with DR Epps pulmonology as per his recommendation
== END 2022-02-01 15:47 | disposition home or self-care (01) | DRG 177 ==
LOC: ER 11:27 → TELE1 13:08
PROVIDERS: ADMIT Nurse Practitioner Acute Care; ATTEND Nurse Practitioner Acute Care
DX: U07.1 COVID-19 (principal); I50.23 Acute on chronic systolic (congestive) heart failure; N17.0 Acute kidney failure with tubular necrosis; E87.1 Hypo-osmolality and hyponatremia; J84.9 Interstitial pulmonary disease, unspecified; I11.0 Hypertensive heart disease with heart failure; J47.9 Bronchiectasis, uncomplicated; I25.5 Ischemic cardiomyopathy; Z95.810 Presence of automatic (implantable) cardiac defibrillator; I25.10 Atherosclerotic heart disease of native coronary artery without angina pectoris; Z90.710 Acquired absence of both cervix and uterus; Z95.5 Presence of coronary angioplasty implant and graft; Z68.30 Body mass index [BMI] 30.0-30.9, adult; E66.9 Obesity, unspecified; Z79.899 Other long term (current) drug therapy; Z87.19 Personal history of other diseases of the digestive system; D63.8 Anemia in other chronic diseases classified elsewhere; E87.6 Hypokalemia; I25.2 Old myocardial infarction; U09.9 Post COVID-19 condition, unspecified; I80.01 Phlebitis and thrombophlebitis of superficial vessels of right lower extremity
CPT/HCPCS: 36415; 70220-TC; 71045-TC; 80048-TC; 80076-TC; 83735-TC; 83880; 84100-TC; 84484-TC; 85025-TC; 85378-TC; 85730-TC; 86140-TC; 87081-TC; 93970-TC; 93971-TC; C9803; G0378; J1650; J1940; J2405